=== PATIENT | female | born 1935 | race Caucasian/White ===

== ENCOUNTER 2016-09-18 13:35 | Inpatient (IN) ==
--- NOTE | 2016-09-18 15:07 | Emergency Department Note ---
Disposition Clinical Impression: Flu UTI (urinary tract infection) Qualifiers: Urinary tract infection type: acute cystitis Hematuria presence: with hematuria Qualified Code(s): N30.01 - Acute cystitis with hematuria Altered mental status Qualifiers: Altered mental status type: delirium Qualified Code(s): R41.0 - Disorientation , unspecified Disposition: Admitted As Inpatient Condition: Good Time of Disposition: 17:49 General Adult HPI - General Chief complaint: ED Nausea/Vomiting/Diarrhea Stated complaint: Flu A (+), UTI Time Seen by Provider: 09/18/16 15:03 Source: patient Limitations: no limitations Nursing Notes Reviewed: Yes Vital Signs Reviewed: Yes - History of Present Illness HPI Narrative: 1 week history of nausea and vomiting. Was diagnosed with flu on Saturday. As well as a UTI. Unable to keep food down. Daughter reporting confusion at home. Unable to perform ADLs as normal. Pain Scale: 0 - Related Data Home Medications Medication Instructions Recorded Confirmed Metoprolol [Lopressor] 12.5 mg PO BID 08/30/16 09/15/16 Allergies Allergy/AdvReac Type Severity Reaction Status Date / Time Penicillins [PCN] Allergy Rash Verified 08/30/16 14:12 Sulfa (Sulfonamide Allergy Vomiting Verified 08/30/16 14:12 Antibiotics) Past Medical History - Past Medical History Medical history: Reports: cancer, hyperlipidemia, hypertension Psychiatric history: Reports: no psych history [employer] B[employer]ER history: Reports: no [employer] history - Social History Smoking Status: Never smoker Smokeless Tobacco Status: No Alcohol use: Reports: none Drug use: Reports: none Physical Exam - General Limitations: no limitations General appearance: alert Course Course Narrative: Frail elderly Female patient presented to emergency department sent by primary care for admission to the hospital according to daughter. Patient states that she was seen on Saturday at [facility] and diagnosed with the flu as well as a UTI. They have been unable to fill her medications over the weekend due to the pharmacy being closed, so she has not taken any antibiotics or Tamiflu. Patient's daughter states that while the patient is acting appropriately as this time she states that she has been very confused at home. They report a fever of 101 and greater. She states she is unable to eat and has not been able to eat since Saturday. She reports nausea vomiting and diarrhea. States that she has tried to keep boulion cubes down with no luck. We will rehydrate patient while she is here. We will get basic labs and a UA. Medically control her nausea. She does have a recent abdominal CT scan done on the showed stable liver and renal cysts and no acute process in her abdomen. We will likely admit patient for symptomatic control. - Reevaluation(s) Reevaluation #1: Patient's urine is growing Escherichia coli. This was cultured on the . We will begin patient on antibiotic/is here. We will admit patient to the hospital for decompensation UTI and flu. Time: 17:20 Vital Signs Temperature 99.9 F H 09/18/16 14:11 Pulse Rate 87 09/18/16 14:11 Respiratory Rate 16 09/18/16 14:11 Blood Pressure 111/73 09/18/16 14:11 O2 Sat by Pulse Oximetry 94 L 09/18/16 14:11 Temperature 99.9 F H 09/18/16 14:11 Pulse Rate 112 09/18/16 17:47 Respiratory Rate 16 09/18/16 17:47 Blood Pressure 110/81 09/18/16 17:47 O2 Sat by Pulse Oximetry 99 09/18/16 17:47 Oxygen Delivery Oxygen Delivery Room Air Medical Decision Making - Medical Records Medical records reviewed: Yes I reviewed the patient's medical records. - Lab Data Lab results reviewed: Yes I reviewed the patient's lab results. Result diagrams: 09/18/16 15:20 09/18/16 15:20 Lab Results 09/18/16 09/18/16 09/18/16 Range/Units 15:20 15:20 15:20 WBC 11.9 H D (4.3-11.1) K/mcL RBC 4.31 (3.82-4.97) M/mcL Hgb 11.6 D (11.5-15.4) g/dL Hct 35.5 (35.3-44.9) % MCV 82.4 L (83.0-100.0) fL MCH 26.9 L (28.0-33.3) pg MCHC 32.7 (31.6-35.5) g/dL RDW 14.6 H (11.5-14.5) % Plt Count 157 (140-400) K/mcL MPV 10.5 (9.4-12.4) fL Immature Gran % 0.5 (0-4) % Seg Neutrophils % 88.0 % Lymphocytes % 7.7 % Monocytes % 3.6 % Eosinophils % 0.0 % Basophils % 0.2 % Neutrophils # 10.5 H (1.6-8.9) K/mcL Lymphocytes # 0.9 (0.6-4.6) K/mcL Monocytes # 0.4 (0.0-1.3) K/mcL Eosinophils # 0.0 (0.0-0.6) K/mcL Basophils # 0.0 (0.0-0.2) K/mcL Sodium 131 L (136-145) mEq/L Potassium 3.3 L (3.5-4.5) mEq/L Chloride 94 L (98-109) mEq/L Carbon Dioxide 27 (19-29) mEq/L BUN 8 (7-20) mg/dL Creatinine 0.63 (0.57-1.11) mg/dL Est GFR ( Amer) > 60 (> 60) Est GFR (Non-Af Amer) > 60 (> 60) BUN/Creatinine Ratio 13 (6-26) Glucose 129 H (70-99) mg/dL Calculated Osmolality 272 L (280-300) Lactic Acid 1.7 (0.5-2.2) mmol/L Calcium 8.7 (8.6-10.8) mg/dL Total Bilirubin 1.3 H (0.2-1.2) mg/dL Direct Bilirubin 0.7 H (0.0-0.5) mg/dL Indirect Bilirubin 0.6 (0.0-1.2) mg/dL AST 46 H (5-34) Units/L ALT 25 (0-55) Units/L Alkaline Phosphatase 67 (38-126) Units/L Serum Total Protein 6.2 (6.0-8.3) g/dL Albumin 3.1 L (3.5-5.0) g/dL Globulin 3.1 (2.4-3.5) g/dL Albumin/Globulin Ratio 1.0 L (1.1-2.2) Amylase 17 L (25-125) Units/L Lipase 6 L (8-78) Units/L Urine Color (Yellow) Urine Clarity (Clear) Urine pH (5.0-8.0) pH Units Ur Specific [place] (1.010-1.025) Urine Protein (Neg-Trace) mg/dL Urine Glucose (UA) (Normal) mg/dL Urine Ketones (Negative) mg/dL Urine Blood (Negative) Urine Nitrite (Negative) Urine Bilirubin (Negative) Urine Urobilinogen (Normal) mg/dL Ur Leukocyte Esterase (Negative) Urine Microscopic RBC (0-3) per hpf Urine Microscopic WBC (0-3) per hpf Ur Squamous Epith Cells (None-Few) per lpf Urine Bacteria (None-Few) per hpf Hyaline Casts (None-Few) per lpf 09/18/16 Range/Units 16:50 WBC (4.3-11.1) K/mcL RBC (3.82-4.97) M/mcL Hgb (11.5-15.4) g/dL Hct (35.3-44.9) % MCV (83.0-100.0) fL MCH (28.0-33.3) pg MCHC (31.6-35.5) g/dL RDW (11.5-14.5) % Plt Count (140-400) K/mcL MPV (9.4-12.4) fL Immature Gran % (0-4) % Seg Neutrophils % % Lymphocytes % % Monocytes % % Eosinophils % % Basophils % % Neutrophils # (1.6-8.9) K/mcL Lymphocytes # (0.6-4.6) K/mcL Monocytes # (0.0-1.3) K/mcL Eosinophils # (0.0-0.6) K/mcL Basophils # (0.0-0.2) K/mcL Sodium (136-145) mEq/L Potassium (3.5-4.5) mEq/L Chloride (98-109) mEq/L Carbon Dioxide (19-29) mEq/L BUN (7-20) mg/dL Creatinine (0.57-1.11) mg/dL Est GFR ( Amer) (> 60) Est GFR (Non-Af Amer) (> 60) BUN/Creatinine Ratio (6-26) Glucose (70-99) mg/dL Calculated Osmolality (280-300) Lactic Acid (0.5-2.2) mmol/L Calcium (8.6-10.8) mg/dL Total Bilirubin (0.2-1.2) mg/dL Direct Bilirubin (0.0-0.5) mg/dL Indirect Bilirubin (0.0-1.2) mg/dL AST (5-34) Units/L ALT (0-55) Units/L Alkaline Phosphatase (38-126) Units/L Serum Total Protein (6.0-8.3) g/dL Albumin (3.5-5.0) g/dL Globulin (2.4-3.5) g/dL Albumin/Globulin Ratio (1.1-2.2) Amylase (25-125) Units/L Lipase (8-78) Units/L Urine Color Yellow (Yellow) Urine Clarity Clear (Clear) Urine pH 7.0 (5.0-8.0) pH Units Ur Specific [place] 1.007 L (1.010-1.025) Urine Protein 30 H (Neg-Trace) mg/dL Urine Glucose (UA) Normal (Normal) mg/dL Urine Ketones 15 H (Negative) mg/dL Urine Blood Small H (Negative) Urine Nitrite Negative (Negative) Urine Bilirubin Negative (Negative) Urine Urobilinogen Normal (Normal) mg/dL Ur Leukocyte Esterase Negative (Negative) Urine Microscopic RBC 0-3 (0-3) per hpf Urine Microscopic WBC 0-3 (0-3) per hpf Ur Squamous Epith Cells Few (None-Few) per lpf Urine Bacteria None Seen (None-Few) per hpf Hyaline Casts None Seen (None-Few) per lpf - Radiology Data Radiology results reviewed: Yes I reviewed the patient's radiology results. Patient recently had a abdominal CT scan which showed no acute process. - EKG Data EKG #1 EKG attestation: Yes I reviewed and interpreted this EKG. EKG results narrative: Normal sinus rhythm at a rate of 60. RI interval is 153. QRS duration is 89. QT is 428. QTC is 429. No signs of acute ischemia. There is some interval change from previous EKG that was dated in 06/19/2012. Attestation Statement - Attestation Attestation: I examined this patient and my medical decision-making was reviewed with the OCEANOGRAPHER ASSISTANT/PA/Advanced Practice Nurse/Resident Physician. I agree with the documented findings, disposition and treatment plan as described except to the extent set forth below. [id number] time provided Patient complains of nausea, vomiting, diarrhea and urinary symptoms. She was recently diagnosed with a UTI and influenza. She appears elderly, thin, frail on exam. Patient seen and evaluated in conjunction with the resident physician
[2016-09-18 15:27] LABS: Basophils % 0.2 %; Hematocrit 35.5 % (35.3-44.9); Hemoglobin 11.6 g/dL (11.5-15.4); Immature Granulocytes % 0.5 % (0-4); Lymphocytes # 0.9 K/mcL (0.6-4.6); Lymphocytes % 7.7 %; Mean Corpuscular HGB Conc 32.7 g/dL (31.6-35.5); Mean Corpuscular Hemoglobin 26.9 pg (28.0-33.3); Mean Corpuscular Volume 82.4 fL (83.0-100.0); Mean Platelet Volume 10.5 fL (9.4-12.4); Monocytes # 0.4 K/mcL (0.0-1.3); Monocytes % 3.6 %; Neutrophils # 10.5 K/mcL (1.6-8.9); Platelet Count 157 K/mcL (140-400); Red Blood Count 4.31 M/mcL (3.82-4.97); Red Cell Distribution Width 14.6 % (11.5-14.5)
[2016-09-18] MEDS ORDERED: 0.9 % Sodium Chloride 1,000 ML IVC ONE (15:35)
[2016-09-18] MEDS ORDERED: Ondansetron 4 MG/2 ML VIAL IVP ONE (15:36)
[2016-09-18 15:43] LABS: Alanine Aminotransferase 25 Units/L (0-55); Albumin 3.1 g/dL (3.5-5.0); Alkaline Phosphatase 67 Units/L (38-126); Amylase 17 Units/L (25-125); Aspartate Amino Transferase 46 Units/L (5-34); BUN/Creatinine Ratio 13 (6-26); Bilirubin,Direct 0.7 mg/dL (0.0-0.5); Bilirubin,Indirect 0.6 mg/dL (0.0-1.2); Bilirubin,Total 1.3 mg/dL (0.2-1.2); Blood Urea Nitrogen 8 mg/dL (7-20); Calcium 8.7 mg/dL (8.6-10.8); Carbon Dioxide 27 mEq/L (19-29); Chloride 94 mEq/L (98-109); Globulin 3.1 g/dL (2.4-3.5); Glucose 129 mg/dL (70-99); Lipase 6 Units/L (8-78); Osmolality,Calculated 272 (280-300); Potassium 3.3 mEq/L (3.5-4.5); Sodium 131 mEq/L (136-145); Total Protein 6.2 g/dL (6.0-8.3); eGFR For African Americans > 60 (> 60); eGFR For Non-African Americans > 60 (> 60)
[2016-09-18 17:04] LABS: Bilirubin,Urine Negative (Negative); Blood,Urine Small (Negative); Clarity,Urine Clear (Clear); Color,Urine Yellow (Yellow); Glucose,Urine (UA) Normal (Normal); Ketones,Urine 15 mg/dL (Negative); Leukocyte Esterase,Urine Negative (Negative); Nitrite,Urine Negative (Negative); Protein,Urine 30 mg/dL (Neg-Trace); Specific Gravity,Urine 1.007 (1.010-1.025); Urobilinogen,Urine Normal (Normal)
[2016-09-18 17:07] LABS: Bacteria,Urine None Seen per hpf (None-Few); Hyaline Casts,Urine None Seen per lpf (None-Few); RBC,Urine 0-3 per hpf (0-3); Squamous Epithelial Cell,Urine Few per lpf (None-Few); WBC,Urine 0-3 per hpf (0-3)
--- NOTE | 2016-09-18 17:32 | Emergency Department Note ---
Disposition Referrals: Ishan Mclaughlin MD [Primary Care Provider] - Forms: ED Satisfaction Letter General Adult HPI - General Chief complaint: ED Nausea/Vomiting/Diarrhea Stated complaint: Flu A (+), UTI Time Seen by Provider: 09/18/16 15:03 Source: patient Limitations: no limitations Nursing Notes Reviewed: Yes Vital Signs Reviewed: Yes - History of Present Illness Pain Scale: 0 - Related Data Home Medications Medication Instructions Recorded Confirmed Metoprolol [Lopressor] 12.5 mg PO BID 08/30/16 09/15/16 Allergies Allergy/AdvReac Type Severity Reaction Status Date / Time Penicillins [PCN] Allergy Rash Verified 08/30/16 14:12 Sulfa (Sulfonamide Allergy Vomiting Verified 08/30/16 14:12 Antibiotics) Past Medical History - Past Medical History Medical history: Reports: cancer, hyperlipidemia, hypertension Psychiatric history: Reports: no psych history REHAB DEPARTMENT MANAGER history: Reports: no REHAB DEPARTMENT MANAGER history - Social History Smoking Status: Never smoker Smokeless Tobacco Status: No Alcohol use: Reports: none Drug use: Reports: none Physical Exam - General Limitations: no limitations General appearance: alert Course Course Narrative: Female patient presenting to the emergency department with her daughter. Daughter states that patient was diagnosed with the flu and a UTI on Saturday. Patient states she has not been feeling very good since Saturday of last week. This is one week ago now. She states on Saturday she was given a prescription for Tamiflu as well as an antibiotic for her UTI. She was unable to fill these. Daughter states that the patient was not acting herself at home. She was confused and unable to perform her activities of daily living. Patient states that she Vital Signs Temperature 99.9 F H 09/18/16 14:11 Pulse Rate 87 09/18/16 14:11 Respiratory Rate 16 09/18/16 14:11 Blood Pressure 111/73 09/18/16 14:11 O2 Sat by Pulse Oximetry 94 L 09/18/16 14:11 Temperature 99.9 F H 09/18/16 14:11 Pulse Rate 87 09/18/16 14:11 Respiratory Rate 16 09/18/16 14:11 Blood Pressure 111/73 09/18/16 14:11 O2 Sat by Pulse Oximetry 94 L 09/18/16 14:11 Oxygen Delivery Oxygen Delivery Room Air Medical Decision Making - Lab Data Result diagrams: 09/18/16 15:20 09/18/16 15:20 Lab Results 09/18/16 09/18/16 09/18/16 Range/Units 15:20 15:20 15:20 WBC 11.9 H D (4.3-11.1) K/mcL RBC 4.31 (3.82-4.97) M/mcL Hgb 11.6 D (11.5-15.4) g/dL Hct 35.5 (35.3-44.9) % MCV 82.4 L (83.0-100.0) fL MCH 26.9 L (28.0-33.3) pg MCHC 32.7 (31.6-35.5) g/dL RDW 14.6 H (11.5-14.5) % Plt Count 157 (140-400) K/mcL MPV 10.5 (9.4-12.4) fL Immature Gran % 0.5 (0-4) % Seg Neutrophils % 88.0 % Lymphocytes % 7.7 % Monocytes % 3.6 % Eosinophils % 0.0 % Basophils % 0.2 % Neutrophils # 10.5 H (1.6-8.9) K/mcL Lymphocytes # 0.9 (0.6-4.6) K/mcL Monocytes # 0.4 (0.0-1.3) K/mcL Eosinophils # 0.0 (0.0-0.6) K/mcL Basophils # 0.0 (0.0-0.2) K/mcL Sodium 131 L (136-145) mEq/L Potassium 3.3 L (3.5-4.5) mEq/L Chloride 94 L (98-109) mEq/L Carbon Dioxide 27 (19-29) mEq/L BUN 8 (7-20) mg/dL Creatinine 0.63 (0.57-1.11) mg/dL Est GFR ( Amer) > 60 (> 60) Est GFR (Non-Af Amer) > 60 (> 60) BUN/Creatinine Ratio 13 (6-26) Glucose 129 H (70-99) mg/dL Calculated Osmolality 272 L (280-300) Lactic Acid 1.7 (0.5-2.2) mmol/L Calcium 8.7 (8.6-10.8) mg/dL Total Bilirubin 1.3 H (0.2-1.2) mg/dL Direct Bilirubin 0.7 H (0.0-0.5) mg/dL Indirect Bilirubin 0.6 (0.0-1.2) mg/dL AST 46 H (5-34) Units/L ALT 25 (0-55) Units/L Alkaline Phosphatase 67 (38-126) Units/L Serum Total Protein 6.2 (6.0-8.3) g/dL Albumin 3.1 L (3.5-5.0) g/dL Globulin 3.1 (2.4-3.5) g/dL Albumin/Globulin Ratio 1.0 L (1.1-2.2) Amylase 17 L (25-125) Units/L Lipase 6 L (8-78) Units/L Urine Color (Yellow) Urine Clarity (Clear) Urine pH (5.0-8.0) pH Units Ur Specific [place] (1.010-1.025) Urine Protein (Neg-Trace) mg/dL Urine Glucose (UA) (Normal) mg/dL Urine Ketones (Negative) mg/dL Urine Blood (Negative) Urine Nitrite (Negative) Urine Bilirubin (Negative) Urine Urobilinogen (Normal) mg/dL Ur Leukocyte Esterase (Negative) Urine Microscopic RBC (0-3) per hpf Urine Microscopic WBC (0-3) per hpf Ur Squamous Epith Cells (None-Few) per lpf Urine Bacteria (None-Few) per hpf Hyaline Casts (None-Few) per lpf 09/18/16 Range/Units 16:50 WBC (4.3-11.1) K/mcL RBC (3.82-4.97) M/mcL Hgb (11.5-15.4) g/dL Hct (35.3-44.9) % MCV (83.0-100.0) fL MCH (28.0-33.3) pg MCHC (31.6-35.5) g/dL RDW (11.5-14.5) % Plt Count (140-400) K/mcL MPV (9.4-12.4) fL Immature Gran % (0-4) % Seg Neutrophils % % Lymphocytes % % Monocytes % % Eosinophils % % Basophils % % Neutrophils # (1.6-8.9) K/mcL Lymphocytes # (0.6-4.6) K/mcL Monocytes # (0.0-1.3) K/mcL Eosinophils # (0.0-0.6) K/mcL Basophils # (0.0-0.2) K/mcL Sodium (136-145) mEq/L Potassium (3.5-4.5) mEq/L Chloride (98-109) mEq/L Carbon Dioxide (19-29) mEq/L BUN (7-20) mg/dL Creatinine (0.57-1.11) mg/dL Est GFR ( Amer) (> 60) Est GFR (Non-Af Amer) (> 60) BUN/Creatinine Ratio (6-26) Glucose (70-99) mg/dL Calculated Osmolality (280-300) Lactic Acid (0.5-2.2) mmol/L Calcium (8.6-10.8) mg/dL Total Bilirubin (0.2-1.2) mg/dL Direct Bilirubin (0.0-0.5) mg/dL Indirect Bilirubin (0.0-1.2) mg/dL AST (5-34) Units/L ALT (0-55) Units/L Alkaline Phosphatase (38-126) Units/L Serum Total Protein (6.0-8.3) g/dL Albumin (3.5-5.0) g/dL Globulin (2.4-3.5) g/dL Albumin/Globulin Ratio (1.1-2.2) Amylase (25-125) Units/L Lipase (8-78) Units/L Urine Color Yellow (Yellow) Urine Clarity Clear (Clear) Urine pH 7.0 (5.0-8.0) pH Units Ur Specific [place] 1.007 L (1.010-1.025) Urine Protein 30 H (Neg-Trace) mg/dL Urine Glucose (UA) Normal (Normal) mg/dL Urine Ketones 15 H (Negative) mg/dL Urine Blood Small H (Negative) Urine Nitrite Negative (Negative) Urine Bilirubin Negative (Negative) Urine Urobilinogen Normal (Normal) mg/dL Ur Leukocyte Esterase Negative (Negative) Urine Microscopic RBC 0-3 (0-3) per hpf Urine Microscopic WBC 0-3 (0-3) per hpf Ur Squamous Epith Cells Few (None-Few) per lpf Urine Bacteria None Seen (None-Few) per hpf Hyaline Casts None Seen (None-Few) per lpf
[2016-09-18] MEDS ORDERED: MOM Conc 10 ML UD.LIQ PO PRN (21:05)
[2016-09-18] MEDS ORDERED: Naloxone 0.4 MG/ML INJ IVP PRN (21:05)
[2016-09-18] MEDS ORDERED: Mag Hydrox/Al Hydrox/Simeth 30 ML UDC PO PRN (21:05)
[2016-09-18] MEDS ORDERED: Ondansetron 4 MG/2 ML VIAL IVP PRN (21:05)
[2016-09-18] MEDS ORDERED: Acetaminophen 325 MG TABLET PO PRN (21:05)
--- NOTE | 2016-09-18 21:13 | Internal Med History&Physical ---
<Orly Louise - Last Filed: 09/18/16 21:42> Date of Encounter: 09/18/16 Time of Encounter: 20:40 Assessment and Plan (1) UTI (urinary tract infection) Current visit: Yes Status: Acute Pt was seen at [facility] on 09/15, diagnosed with UTI and given abx rx that she did not get filled until yesterday. She took one pill and said that they made her sick and did not take anymore. Culture growing gram negative rods, most likely E. coli. Pt got initial dose Rocephin 1 gram IV in ED. Will continue and add Zithromax 500mg IV daily. Qualifiers: Urinary tract infection type: acute cystitis Hematuria presence: without hematuria Qualified Code(s): N30.00 - Acute cystitis without hematuria (2) Influenza A Current visit: No Status: Acute Pt Flu A positive, negative for B at [facility] on 09/15. Pt did not get rx for Tamiflu filled until yesterday and only took one tablet. Pt was sent to ED today for admission for continued illness. Pt states that she actually feels better. Denies worsening cough, productive cough, dyspnea, or other URI symptoms today. Window for starting Tamiflu is over now, will not continue. Since pt had low grade fever on arrival and white count is 11.9, will order chest xray and duonebs prn. (3) Altered mental status Current visit: Yes Status: Acute Family reports recent confusion at home. Pt denies and is alert, oriented x 3, and answers questions appropriately. Pt is close to nurse's station. Will implement fall precautions. Qualifiers: Altered mental status type: unspecified Qualified Code(s): R41.82 - Altered mental status, unspecified (4) Hypokalemia Current visit: Yes Status: Acute K 3.3. Potassium Chloride 40meq po once. Magnesium level in a.m. (5) Hyponatremia Current visit: Yes Status: Acute Sodium 133. 0.9NS at 75ml/hour (6) Iron deficiency anemia Current visit: No Status: Chronic Stable. Will continue to monitor. Qualifiers: Iron deficiency anemia type: inadequate dietary iron intake Qualified Code( s): D50.8 - Other iron deficiency anemias (7) HTN (hypertension) Current visit: Yes Status: Chronic STable. Continue pts home dose of Metoprolol. Monitor VS. Qualifiers: Hypertension type: essential hypertension Qualified Code(s): I10 - Essential (primary) hypertension Internal Medicine - H&P: HPI Chief complaint: flu, uti Admitted From: Home Plans for Post Hospital Care: Home History of present illness: Ms. Zaragoza is a 81 year old female with history of recent UTI and HTN who presents to ED today for 1 week history of n/v, altered mental status, and diagnosis of UTI and flu A on 09/15 at [facility]. Pt got rx for Tamiflu and ATB at that time, but did not get them filled until yesterday. She took one pill and said that they made her sick and she refused to take any more. Pt reports that she has had fevers over the week, but is feeling better. She is alert and oriented x 3 and answers questions appropriately, however, daughter says that pt has been confused and is unable to expound on any information. Pt was sent here by PCP today for admission. Past Med Surg Social Fam HX - Past Medical History Medical history: cancer, hyperlipidemia, hypertension Psychiatric history: no psych history - Social History Smoking Status: Never smoker Smokeless Tobacco Status: No Alcohol use: none Drug use: none - Family History Mother Hx Family Cancer: Yes Father Hx Family Cardiac Disorders: Yes Internal Medicine - H&P: Meds Metoprolol [Lopressor] 12.5 mg PO BID 08/30/16 [History] Allergies Penicillins [PCN] Allergy (Verified 08/30/16 14:12) Rash Sulfa (Sulfonamide Antibiotics) Allergy (Verified 08/30/16 14:12) Vomiting All Systems PM: A 10-system review of systems was performed and is negative for pertinent findings except as documented above in the HPI. - Constitutional Constitutional: fatigue, fever(s), malaise, weakness, no falls - EENT Eyes: no discharge, no loss of vision Ears: no ear discharge, no ear pain Nose, mouth and throat: no dysphagia, no facial pain, no hoarseness, no neck pain, no post-nasal drip, no sinus pain, no sinus pressure, no sore throat - Cardiovascular Cardiovascular ROS IM: no chest pain, no dyspnea, no edema, no lightheadedness - Respiratory Respiratory: cough, chest congestion, no pain on inspiration, no pain with cough - Gastrointestinal Gastrointestinal: diarrhea, nausea, vomiting, no constipation - Genitourinary Genitourinary: dysuria, no urinary frequency, no urinary hesitancy, no urinary incontinence Additional comments: PT has chronic back pain, denies change. - Musculoskeletal Musculoskeletal ROS IM: back pain, no numbness, no tingling - Neurological Neurological ROS: no confusion Additional comments: Daughter reports confusion, however, is unable to give examples. - Constitutional Vitals: Temp Pulse Resp BP Pulse Ox 98.1 F 98 14 95/64 95 09/18/16 19:31 09/18/16 19:31 09/18/16 19:31 09/18/16 19:31 09/18/16 19:31 General appearance: Present: cooperative, A&O X 3, no acute distress, underweight, answers questions appropriately - Head Head exam: Present: atraumatic, normal inspection - Eye Eye exam: Present: normal appearance, conjuntiva pink. Absent: nystagmus - ENT ENT exam: Present: mucous membranes dry, normal exam, normal external ear exam, normal oropharynx - Neck Neck exam general surgery: Present: normal inspection. Absent: lymphadenopathy , tenderness - Respiratory Respiratory exam: Present: CTAB. Absent: chest wall tenderness, decreased breath sounds, rales, rhonchi, wheezes - Cardiovascular Cardiovascular exam: Present: RRR, +S1, +S2. Absent: diastolic murmur, systolic murmur - GI/Abdominal GI/Abdominal exam: Present: normal bowel sounds, soft. Absent: hepatomegaly, tenderness - Extremities Exam Extremities exam: Present: calf tenderness, normal capillary refill, normal inspection, warm, radial pulses palpable and symetrical. Absent: cyanotic, joint swelling, mottling, pedal edema, tenderness Internal Med - H&P Results - Labs CBC & Chem 7: 09/18/16 15:20 09/18/16 15:20 <JanAngel Madison - Last Filed: 09/19/16 07:22> Date of Encounter: 09/18/16 Internal Medicine - H&P: HPI History of present illness: Ms. Zaragoza is a 81 year old female For this encounter, I have reviewed the [employer] documentation, treatment plan, and medical decision making. I examined this patient and my medical decision-making was reviewed with the Advanced Practice Nurse. I agree with the documented findings, disposition and treatment plan as described except to the extent set forth below. All Systems PM: A 10-system review of systems was performed and is negative for pertinent findings except as documented above in the HPI. - Constitutional Vitals: Temp Pulse Resp BP Pulse Ox 98.0 F 69 12 108/69 97 09/19/16 06:56 09/19/16 06:56 09/19/16 06:56 09/19/16 06:56 09/19/16 06:56 Internal Med - H&P Results - Labs CBC & Chem 7: 09/19/16 04:08 09/19/16 04:08 Labs: Short CBC 09/19/16 Range/Units 04:08 WBC 9.7 (4.3-11.1) K/mcL Hgb 10.2 L (11.5-15.4) g/dL Hct 31.5 L (35.3-44.9) % Plt Count 137 L (140-400) K/mcL Neutrophils # 8.4 (1.6-8.9) K/mcL BMP 09/19/16 04:08 Sodium 137 Potassium 3.5 Chloride 104 Carbon Dioxide 24 BUN 7 Creatinine 0.55 L Glucose 103 H Calcium 7.7 L Vital Signs Temp Pulse Resp BP Pulse Ox 09/19/16 06:56 98.0 F 69 12 108/69 97 09/19/16 03:47 98.0 F 113 20 115/82 99 09/18/16 23:58 98.4 F 72 16 95/59 98 09/18/16 19:31 98.1 F 98 14 95/64 95 09/18/16 18:02 16 110/81 09/18/16 17:47 112 16 110/81 99 09/18/16 14:11 99.9 F H 87 16 111/73 94 L Intake and Output 09/18/16 09/18/16 09/19/16 15:59 23:59 07:59 Intake Total 1250 / 1250 Balance 1250 / 1250 Intake: IV Fluids 1250 / 1250 0.9 % Sodium Chloride 1, 1000 / 1000 000 ML @ 3750 mls/hr IVC .Q16M ONE Rx#:[id number] Zithromax 500 mg In 250 / 250 Dextrose 5% 250 ML @ 252 mls/hr IVPB Q24H [place] Rx#: [id number] Other: Stool Size Moderate Stool Consistency liquid Stool Characteristics Normal for Patient Stool Color Brown # Voids 1 1 # Bowel Movement Diapers 1 1 Weight 43.545 kg - Impressions Abnormal lab results RBC 3.80 M/mcL (3.82-4.97) L 09/19/16 04:08 Hgb 10.2 g/dL (11.5-15.4) L 09/19/16 04:08 Hct 31.5 % (35.3-44.9) L 09/19/16 04:08 MCV 82.9 fL (83.0-100.0) L 09/19/16 04:08 MCH 26.8 pg (28.0-33.3) L 09/19/16 04:08 RDW 14.8 % (11.5-14.5) H 09/19/16 04:08 Plt Count 137 K/mcL (140-400) L 09/19/16 04:08 Platelet Estimate Slight Decrease (Normal) L 09/19/16 04:08 Creatinine 0.55 mg/dL (0.57-1.11) L 09/19/16 04:08 Glucose 103 mg/dL (70-99) H 09/19/16 04:08 Calcium 7.7 mg/dL (8.6-10.8) L 09/19/16 04:08 Total Bilirubin 1.3 mg/dL (0.2-1.2) H 09/18/16 15:20 Direct Bilirubin 0.7 mg/dL (0.0-0.5) H 09/18/16 15:20 AST 46 Units/L (5-34) H 09/18/16 15:20 C-Reactive Protein 92 mg/L (Less than 5) H 09/19/16 04:08 Albumin 3.1 g/dL (3.5-5.0) L 09/18/16 15:20 Albumin/Globulin Ratio 1.0 (1.1-2.2) L 09/18/16 15:20 Amylase 17 Units/L (25-125) L 09/18/16 15:20 Lipase 6 Units/L (8-78) L 09/18/16 15:20 Ur Specific [place] 1.007 (1.010-1.025) L 09/18/16 16:50 Urine Protein 30 mg/dL (Neg-Trace) H 09/18/16 16:50 Urine Ketones 15 mg/dL (Negative) H 09/18/16 16:50 Urine Blood Small (Negative) H 09/18/16 16:50 Influenza A (H3) PCR DETECTED (Not Detect) A 09/19/16 04:56 Laboratory Results WBC 9.7 K/mcL (4.3-11.1) 09/19/16 04:08 RBC 3.80 M/mcL (3.82-4.97) L 09/19/16 04:08 Hgb 10.2 g/dL (11.5-15.4) L 09/19/16 04:08 Hct 31.5 % (35.3-44.9) L 09/19/16 04:08 MCV 82.9 fL (83.0-100.0) L 09/19/16 04:08 MCH 26.8 pg (28.0-33.3) L 09/19/16 04:08 MCHC 32.4 g/dL (31.6-35.5) 09/19/16 04:08 RDW 14.8 % (11.5-14.5) H 09/19/16 04:08 Plt Count 137 K/mcL (140-400) L 09/19/16 04:08 MPV 11.5 fL (9.4-12.4) 09/19/16 04:08 Immature Gran % 0.7 % (0-4) 09/19/16 04:08 Seg Neutrophils % 86.7 % 09/19/16 04:08 Lymphocytes % 8.1 % 09/19/16 04:08 Monocytes % 4.4 % 09/19/16 04:08 Eosinophils % 0.0 % 09/19/16 04:08 Basophils % 0.1 % 09/19/16 04:08 Neutrophils # 8.4 K/mcL (1.6-8.9) 09/19/16 04:08 Lymphocytes # 0.8 K/mcL (0.6-4.6) 09/19/16 04:08 Monocytes # 0.4 K/mcL (0.0-1.3) 09/19/16 04:08 Eosinophils # 0.0 K/mcL (0.0-0.6) 09/19/16 04:08 Basophils # 0.0 K/mcL (0.0-0.2) 09/19/16 04:08 Platelet Estimate Slight Decrease (Normal) L 09/19/16 04:08 Sodium 137 mEq/L (136-145) 09/19/16 04:08 Potassium 3.5 mEq/L (3.5-4.5) 09/19/16 04:08 Chloride 104 mEq/L (98-109) 09/19/16 04:08 Carbon Dioxide 24 mEq/L (19-29) 09/19/16 04:08 BUN 7 mg/dL (7-20) 09/19/16 04:08 Creatinine 0.55 mg/dL (0.57-1.11) L 09/19/16 04:08 Est GFR ( Amer) > 60 (> 60) 09/19/16 04:08 Est GFR (Non-Af Amer) > 60 (> 60) 09/19/16 04:08 BUN/Creatinine Ratio 13 (6-26) 09/19/16 04:08 Glucose 103 mg/dL (70-99) H 09/19/16 04:08 Calculated Osmolality 282 (280-300) 09/19/16 04:08 Lactic Acid 1.7 mmol/L (0.5-2.2) 09/18/16 15:20 Calcium 7.7 mg/dL (8.6-10.8) L 09/19/16 04:08 Magnesium 1.6 mg/dL (1.6-2.6) 09/19/16 04:08 Total Bilirubin 1.3 mg/dL (0.2-1.2) H 09/18/16 15:20 Direct Bilirubin 0.7 mg/dL (0.0-0.5) H 09/18/16 15:20 Indirect Bilirubin 0.6 mg/dL (0.0-1.2) 09/18/16 15:20 AST 46 Units/L (5-34) H 09/18/16 15:20 ALT 25 Units/L (0-55) 09/18/16 15:20 Alkaline Phosphatase 67 Units/L (38-126) 09/18/16 15:20 C-Reactive Protein 92 mg/L (Less than 5) H 09/19/16 04:08 Serum Total Protein 6.2 g/dL (6.0-8.3) 09/18/16 15:20 Albumin 3.1 g/dL (3.5-5.0) L 09/18/16 15:20 Globulin 3.1 g/dL (2.4-3.5) 09/18/16 15:20 Albumin/Globulin Ratio 1.0 (1.1-2.2) L 09/18/16 15:20 Amylase 17 Units/L (25-125) L 09/18/16 15:20 Lipase 6 Units/L (8-78) L 09/18/16 15:20 Urine Color Yellow (Yellow) 09/18/16 16:50 Urine Clarity Clear (Clear) 09/18/16 16:50 Urine pH 7.0 pH Units (5.0-8.0) 09/18/16 16:50 Ur Specific [place] 1.007 (1.010-1.025) L 09/18/16 16:50 Urine Protein 30 mg/dL (Neg-Trace) H 09/18/16 16:50 Urine Glucose (UA) Normal mg/dL (Normal) 09/18/16 16:50 Urine Ketones 15 mg/dL (Negative) H 09/18/16 16:50 Urine Blood Small (Negative) H 09/18/16 16:50 Urine Nitrite Negative (Negative) 09/18/16 16:50 Urine Bilirubin Negative (Negative) 09/18/16 16:50 Urine Urobilinogen Normal mg/dL (Normal) 09/18/16 16:50 Ur Leukocyte Esterase Negative (Negative) 09/18/16 16:50 Urine Microscopic RBC 0-3 per hpf (0-3) 09/18/16 16:50 Urine Microscopic WBC 0-3 per hpf (0-3) 09/18/16 16:50 Ur Squamous Epith Cells Few per lpf (None-Few) 09/18/16 16:50 Urine Bacteria None Seen per hpf (None-Few) 09/18/16 16:50 Hyaline Casts None Seen per lpf (None-Few) 09/18/16 16:50 Chlamy pneumoniae PCR Not Detected (Not Detect) 09/19/16 04:56 Adenovirus (PCR) Not Detected (Not Detect) 09/19/16 04:56 B. pertussis DNA (PCR) Not Detected (Not Detect) 09/19/16 04:56 Coronavirus OC43 (PCR) Not Detected (Not Detect) 09/19/16 04:56 Coronavirus HKU1 (PCR) Not Detected (Not Detect) 09/19/16 04:56 Coronavirus 229E (PCR) Not Detected (Not Detect) 09/19/16 04:56 Coronavirus NL63 (PCR) Not Detected (Not Detect) 09/19/16 04:56 Human Metapneumovirus Not Detected (Not Detect) 09/19/16 04:56 Influenza A (H1) PCR Not Detected (Not Detect) 09/19/16 04:56 Influ A (H1N1/09) PCR Not Detected (Not Detect) 09/19/16 04:56 Influenza A (H3) PCR DETECTED (Not Detect) A 09/19/16 04:56 Influenza A Untype (PCR) Not Detected (Not Detect) 09/19/16 04:56 Influenza Type B (PCR) Not Detected (Not Detect) 09/19/16 04:56 M.pneumoniae DNA (PCR) Not Detected (Not Detect) 09/19/16 04:56 Parainfluenza 1 (PCR) Not Detected (Not Detect) 09/19/16 04:56 Parainfluenza 2 (PCR) Not Detected (Not Detect) 09/19/16 04:56 Parainfluenza 3 (PCR) Not Detected (Not Detect) 09/19/16 04:56 Parainfluenza 4 (PCR) Not Detected (Not Detect) 09/19/16 04:56 RSV (PCR) Not Detected (Not Detect) 09/19/16 04:56 Entero/Rhino (PCR) Not Detected (Not Detect) 09/19/16 04:56
[2016-09-18] MEDS ORDERED: Ipratropium/Albuterol Neb 3 ML IH PRN (21:41)
[2016-09-18] MEDS ORDERED: 0.9 % Sodium Chloride 1,000 ML IVC SCH (21:45)
[2016-09-18] MEDS ORDERED: Potassium Chloride Elixir 20 MEQ/15 ML UDC PO ONE (21:46)
[2016-09-18] MEDS: Azithromycin 500 MG in D5% in Water 250 ML IVPB SCH (22:31)
[2016-09-19] MEDS ORDERED: Benzonatate 100 MG CAPSULE PO PRN (00:02)
[2016-09-19] MEDS ORDERED: *HR* OxyCODONE Immed Rel 5 MG TABLET PO PRN (00:03)
[2016-09-19] MEDS ORDERED: *HR* Morphine 2 MG/ML SYRINGE IVP PRN (00:03)
[2016-09-19 05:10] LABS: Basophils % 0.1 %; Hematocrit 31.5 % (35.3-44.9); Hemoglobin 10.2 g/dL (11.5-15.4); Immature Granulocytes % 0.7 % (0-4); Lymphocytes # 0.8 K/mcL (0.6-4.6); Lymphocytes % 8.1 %; Mean Corpuscular HGB Conc 32.4 g/dL (31.6-35.5); Mean Corpuscular Hemoglobin 26.8 pg (28.0-33.3); Mean Corpuscular Volume 82.9 fL (83.0-100.0); Mean Platelet Volume 11.5 fL (9.4-12.4); Monocytes # 0.4 K/mcL (0.0-1.3); Monocytes % 4.4 %; Neutrophils # 8.4 K/mcL (1.6-8.9); Platelet Count 137 K/mcL (140-400); Red Cell Distribution Width 14.8 % (11.5-14.5); Segmented Neutrophils % 86.7 %
[2016-09-19 05:32] LABS: BUN/Creatinine Ratio 13 (6-26); Blood Urea Nitrogen 7 mg/dL (7-20); Calcium 7.7 mg/dL (8.6-10.8); Carbon Dioxide 24 mEq/L (19-29); Chloride 104 mEq/L (98-109); Glucose 103 mg/dL (70-99); Osmolality,Calculated 282 (280-300); Potassium 3.5 mEq/L (3.5-4.5); Sodium 137 mEq/L (136-145); eGFR For African Americans > 60 (> 60); eGFR For Non-African Americans > 60 (> 60)
[2016-09-19 05:49] LABS: Platelet Estimate Slight Decrease (Normal)
[2016-09-19 06:42] LABS: Coronavirus 229E Not Detected (Not Detect); Coronavirus HKU1 Not Detected (Not Detect); Coronavirus NL63 Not Detected (Not Detect); Coronavirus OC43 Not Detected (Not Detect); Human Metapneumovirus Not Detected (Not Detect); Human Rhinovirus/Enterovirus Not Detected (Not Detect)
[2016-09-19 06:45] LABS: Bordetella Pertussis Not Detected (Not Detect); Chlamydophila pneumoniae Not Detected (Not Detect); Influenza A Subtype 2009 H1 Not Detected (Not Detect); Influenza A Untypeable Not Detected (Not Detect); Influenza B Not Detected (Not Detect); Mycoplasma pneumoniae Not Detected (Not Detect); Parainfluenza Virus 1 Not Detected (Not Detect); Parainfluenza Virus 2 Not Detected (Not Detect); Parainfluenza Virus 3 Not Detected (Not Detect); Parainfluenza Virus 4 Not Detected (Not Detect); Respiratory Syncytial Virus Not Detected (Not Detect)
[2016-09-19 06:51] LABS: Adenovirus Not Detected (Not Detect)
[2016-09-19] MEDS ORDERED: Famotidine 20 MG TABLET PO SCH (09:00)
[2016-09-19 11:52] LABS: Thyroid Stimulating Hormone 1.75 mcIU/mL (0.350-4.840)
--- NOTE | 2016-09-19 11:58 | Internal Med Progress Note ---
Date of Encounter: 09/19/16 Time of Encounter: 09:00 - Assessment and plan (1) Altered mental status Current Visit: Yes Status: Resolved Assessment and plan: Patient alert and oriented 3. Qualifiers: Altered mental status type: unspecified Qualified Code(s): R41.82 - Altered mental status, unspecified (2) Flu Current Visit: Yes Status: Acute Assessment and plan: Positive for influenza AH3. She is endorsing several sick contacts close to her. She has not been able to eat very much over the past week but was able to have a couple bites of her breakfast, which is improvement. We will continue to advance her diet as she tolerates. She denies shortness of breath. Plan is to observe her at least 1 more night, possibly to given that she has very little by mouth intake, continues with diarrhea, and is generally weak. (3) Hypokalemia Current Visit: Yes Status: Resolved (4) Hyponatremia Current Visit: Yes Status: Resolved (5) UTI (urinary tract infection) Current Visit: Yes Status: Acute Assessment and plan: Preliminary gram-negative rods, continue azithromycin and ceftriaxone, sensitivities pending. Mild leukocytosis resolved. Vital signs are stable Qualifiers: Urinary tract infection type: acute cystitis Hematuria presence: without hematuria Qualified Code(s): N30.00 - Acute cystitis without hematuria (6) HTN (hypertension) Current Visit: Yes Status: Chronic Assessment and plan: Appears controlled, we will continue to trend and adjust medications as indicated Qualifiers: Hypertension type: essential hypertension Qualified Code(s): I10 - Essential (primary) hypertension (7) Anemia Current Visit: No Status: Chronic Assessment and plan: Mild, acute on chronic, no signs of active bleeding, stable (8) Influenza A Current Visit: No Status: Acute - Subjective Interval history: Patient seen and examined. On examination, patient sitting upright in bed watching television. She is alert and oriented 3 and currently denies pain. She states she was able to eat a little bit of her breakfast but only a few bites. - Constitutional Vitals: Temp Pulse Resp BP Pulse Ox 97.9 F 83 10 112/71 98 09/19/16 10:49 09/19/16 10:49 09/19/16 10:49 09/19/16 10:49 09/19/16 10:49 General appearance: Present: cooperative, A&O X 3, pleasant, no acute distress, underweight, answers questions appropriately - Head Head exam: Present: atraumatic, normocephalic - Eye Eye exam: Present: PERRL, conjuntiva pink, sclera anicteric Pupils: Present: PERRL - Neck Neck exam general surgery: Present: supple, trachea midline. Absent: lymphadenopathy - Respiratory Respiratory exam: Present: rhonchi (upper airway congestion with good aeration) . Absent: accessory muscle use, rales, respiratory distress, wheezes - Cardiovascular Cardiovascular exam: Present: RRR, +S1, +S2. Absent: diastolic murmur, gallop, rubs, systolic murmur - GI/Abdominal GI/Abdominal exam: Present: normal bowel sounds, soft, no peritoneal signs. Absent: distended, tenderness - Extremities Exam Extremities exam: Present: warm, radial pulses palpable and symetrical. Absent : calf tenderness, cyanotic, pedal edema - Neurological Exam Neurological exam: Present: alert, CN II-XII intact, oriented X3, no focal deficits, strengths equal and symetr throughout. Absent: pronater drift, facial droop, speech deficit - Skin Skin exam: Present: dry, intact, pallor, warm Internal Medicine: Result - Labs CBC & Chem 7: 09/19/16 04:08 09/19/16 04:08 Labs: Short CBC 09/19/16 Range/Units 04:08 WBC 9.7 (4.3-11.1) K/mcL Hgb 10.2 L (11.5-15.4) g/dL Hct 31.5 L (35.3-44.9) % Plt Count 137 L (140-400) K/mcL Neutrophils # 8.4 (1.6-8.9) K/mcL BMP 09/19/16 04:08 Sodium 137 Potassium 3.5 Chloride 104 Carbon Dioxide 24 BUN 7 Creatinine 0.55 L Glucose 103 H Calcium 7.7 L Consult Discharge Plan - Plan Referrals: Ishan Mclaughlin MD [Primary Care Provider] -
[2016-09-19] MEDS: Famotidine 20 MG TABLET PO SCH (20:49)
[2016-09-19] MEDS: Azithromycin 500 MG in D5% in Water 250 ML IVPB SCH (21:59)
[2016-09-20 04:52] LABS: Basophils % 0.1 %; Eosinophils % 0.2 %; Hemoglobin 10.2 g/dL (11.5-15.4); Immature Granulocytes % 0.6 % (0-4); Lymphocytes # 0.9 K/mcL (0.6-4.6); Lymphocytes % 10.6 %; Mean Corpuscular HGB Conc 31.9 g/dL (31.6-35.5); Mean Corpuscular Hemoglobin 26.6 pg (28.0-33.3); Mean Corpuscular Volume 83.3 fL (83.0-100.0); Mean Platelet Volume 10.8 fL (9.4-12.4); Monocytes # 0.4 K/mcL (0.0-1.3); Monocytes % 4.9 %; Platelet Count 155 K/mcL (140-400); Red Blood Count 3.84 M/mcL (3.82-4.97); Segmented Neutrophils % 83.6 %
[2016-09-20 04:57] LABS: Neutrophils # 7.2 K/mcL (1.6-8.9)
[2016-09-20 05:07] LABS: BUN/Creatinine Ratio 13 (6-26); Blood Urea Nitrogen 7 mg/dL (7-20); Calcium 8.1 mg/dL (8.6-10.8); Carbon Dioxide 23 mEq/L (19-29); Chloride 105 mEq/L (98-109); Glucose 110 mg/dL (70-99); Magnesium 1.6 mg/dL (1.6-2.6); Osmolality,Calculated 281 (280-300); Potassium 3.3 mEq/L (3.5-4.5); Sodium 136 mEq/L (136-145); eGFR For African Americans > 60 (> 60); eGFR For Non-African Americans > 60 (> 60)
[2016-09-20 05:34] LABS: Platelet Estimate Normal (Normal); Reactive Lymphocytes Present (Not Present)
--- NOTE | 2016-09-20 16:22 | Internal Med Progress Note ---
Date of Encounter: 09/20/16 Time of Encounter: 16:18 - Assessment and plan (1) Atrial fibrillation Current Visit: Yes Status: Acute Assessment and plan: Noted to have Afib with RVR this morning with rate fluctuating between 120-150 Rate controlled with one time dose of Cardizem 10mg IVP Will increase Metoprolol to 25mg PO q12h Will start Aspirin 81mg PO qd If arrhythmia persists, will consider cardiology eval in am for further management Qualifiers: Atrial fibrillation type: paroxysmal Qualified Code(s): I48.0 - Paroxysmal atrial fibrillation (2) Urinary tract infection Current Visit: No Status: Acute Assessment and plan: Continue IV abx awaiting finalization of urine cultures Qualifiers: Urinary tract infection type: site unspecified Hematuria presence: without hematuria Qualified Code(s): N39.0 - Urinary tract infection, site not specified (3) Anemia Current Visit: No Status: Chronic Assessment and plan: Patient has history of severe iron deficiency and B12 deficiency anemia She follows Dr. Galdamez for management of her anemia along with follow up for her stage II colon cancer (currently in remission) H&H low but acceptable No active bleeding noted at this time Will continue to monitor Qualifiers: Anemia type: unspecified type Qualified Code(s): D64.9 - Anemia, unspecified (4) HTN (hypertension) Current Visit: Yes Status: Chronic Assessment and plan: BP within acceptable range will continue current management Qualifiers: Hypertension type: essential hypertension Qualified Code(s): I10 - Essential (primary) hypertension (5) Colon cancer Current Visit: No Status: Chronic Assessment and plan: currently in remission Qualifiers: Colon location: unspecified part of colon Qualified Code(s): C18.9 - Malignant neoplasm of colon, unspecified (6) DVT prophylaxis Current Visit: Yes Status: Acute Assessment and plan: Lovenox SQ - Subjective Interval history: Patient seen and examined at bedside. Resting comfortably in bed and reports of feeling better compared to the previous day. Earlier this morning patient was noted to be tachycardic and upon further evaluation was found to be in AFib with RVR with rate fluctuating between 120-150bpm. Patient was given Cardizem 10mg IVP x 1 dose with rate control. Pt remained asymptomatic throughout the episode and rate has been controlled throughout the day. - Constitutional Vitals: Temp Pulse Resp BP Pulse Ox 98.4 F 65 16 138/86 93 L 09/20/16 15:45 09/20/16 15:45 09/20/16 15:45 09/20/16 15:45 09/20/16 15:45 General appearance: Present: cooperative, A&O X 3, pleasant, no acute distress, underweight, answers questions appropriately - Head Head exam: Present: atraumatic, normocephalic - Eye Eye exam: Present: normal appearance, conjuntiva pink, sclera anicteric - Respiratory Respiratory exam: Present: CTAB. Absent: respiratory distress, wheezes - Cardiovascular Cardiovascular exam: Present: irregular rhythm, +S1, +S2 - GI/Abdominal GI/Abdominal exam: Present: normal bowel sounds, soft. Absent: distended, tenderness - Extremities Exam Extremities exam: Present: warm, radial pulses palpable and symetrical. Absent : calf tenderness, pedal edema - Neurological Exam Neurological exam: Present: alert, oriented X3, no focal deficits - Psychiatric Psychiatric exam: Present: normal affect, normal mood Internal Medicine: Result - Labs CBC & Chem 7: 09/20/16 04:40 09/20/16 04:40 Labs: Short CBC 09/20/16 Range/Units 04:40 WBC 8.6 (4.3-11.1) K/mcL Hgb 10.2 L (11.5-15.4) g/dL Hct 32.0 L (35.3-44.9) % Plt Count 155 (140-400) K/mcL Neutrophils # 7.2 (1.6-8.9) K/mcL BMP 09/20/16 04:40 Sodium 136 Potassium 3.3 L Chloride 105 Carbon Dioxide 23 BUN 7 Creatinine 0.53 L Glucose 110 H Calcium 8.1 L - VTE Documentation of Mechanical Device: Graduated compression elastic hosiery Consult Discharge Plan - Plan Referrals: Ishan Mclaughlin MD [Primary Care Provider] -
[2016-09-20] MEDS ORDERED: *HR* Enoxaparin 30 MG/0.3 ML SYRINGE SQ ONE (16:23)
[2016-09-20] MEDS: Aspirin Enteric Coated 81 MG Tablet PO SCH (17:34)
[2016-09-20] MEDS: Azithromycin 500 MG in D5% in Water 250 ML IVPB SCH (21:46)
[2016-09-20] MEDS: Famotidine 20 MG TABLET PO SCH (21:46)
[2016-09-21 05:47] LABS: Basophils % 0.4 %; Eosinophils % 0.4 %; Hematocrit 33.3 % (35.3-44.9); Hemoglobin 10.7 g/dL (11.5-15.4); Immature Granulocytes % 0.9 % (0-4); Lymphocytes # 0.9 K/mcL (0.6-4.6); Lymphocytes % 15.2 %; Mean Corpuscular HGB Conc 32.1 g/dL (31.6-35.5); Mean Corpuscular Hemoglobin 26.5 pg (28.0-33.3); Mean Corpuscular Volume 82.4 fL (83.0-100.0); Mean Platelet Volume 11.2 fL (9.4-12.4); Monocytes # 0.6 K/mcL (0.0-1.3); Monocytes % 10.1 %; Neutrophils # 4.1 K/mcL (1.6-8.9); Platelet Count 233 K/mcL (140-400); Red Blood Count 4.04 M/mcL (3.82-4.97)
[2016-09-21 05:49] LABS: BUN/Creatinine Ratio 11 (6-26); Blood Urea Nitrogen 6 mg/dL (7-20); Carbon Dioxide 24 mEq/L (19-29); Chloride 104 mEq/L (98-109); Glucose 109 mg/dL (70-99); Magnesium 1.3 mg/dL (1.6-2.6); Osmolality,Calculated 282 (280-300); Phosphorous 2.4 mg/dL (2.3-4.7); Potassium 3.9 mEq/L (3.5-4.5); Sodium 137 mEq/L (136-145); eGFR For African Americans > 60 (> 60); eGFR For Non-African Americans > 60 (> 60)
[2016-09-21] MEDS ORDERED: *HR* Enoxaparin 30 MG/0.3 ML SYRINGE SQ SCH (06:00)
[2016-09-21] MEDS ORDERED: Magnesium Sulfate 2 GM in D5% in Water 100 ML IVPB ONE (08:11)
[2016-09-21] MEDS: Aspirin Enteric Coated 81 MG Tablet PO SCH (09:04)
--- NOTE | 2016-09-21 09:26 | Cardiology Consult Note ---
Date of Encounter: 09/21/16 Time of Encounter: 08:30 Assessment and Plan (1) Influenza A Current Visit: Yes Status: Acute Per cardiology: -Pateint Flu A positive, negative for B at [place] [facility] on 09/15. Pt did not get rx for Tamiflu filled until yesterday and only took one tablet. -Patient states she has been sick since 09/11 -Admits vomiting, diarrhea, productive cough, congestion. -Management per primary service. -Continue current therapy. -May be a contributing factor to atrial fibrillation. (EMILY) (2) Atrial fibrillation Current Visit: Yes Status: Acute Per cardiology: -Patient with known history of paroxysmal atrial fibrillation. -Patient was being rate and suspected ryhthm controlled as outpatient with metoprolol. 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 Previous records reviewed from cardiology and appears patient has previously declined Coumadin. Patient reports she lives at home with her daughter and is active driving and does room grocery shopping. She denies any falls. Denies any active bleeding or blood loss. -Was given 10mg IV cardizem x1 09/20/16 with rate control per primary service. Metoprolol was increased from 12.5 mg BID to 50mg BID per primary service. -[place] fibrillation with HR 158 per telemtry this am, now in afib 80's to 90's on tele. -[id number] score is 5. retirement anticoagulation recommended. -Discusssed at length regarding [facility] anticoagulation with patient. Patient agreeable for anticoagulation. -Will yo check eliquis for patient. -TSH 1.750. -Echocardiogram 2011 with EF 60%, mild-moderate TR. -Stress test 2011 negative for ischemia. -Carotid duplex 2014 with right ICA 60-79% stenosis. -Appears to be better rate controlled with increased dose of beta carol. We' ll continue to monitor heart rate and blood pressure. -Will yo check eliquis 2.5 mg by mouth twice a day (age over 80, wt less than 60kg). May need coumadin if eliquis in unaffordable for pateint. (EMILY) Qualifiers: Atrial fibrillation type: paroxysmal Qualified Code(s): I48.0 - Paroxysmal atrial fibrillation (3) Anemia Current Visit: No Status: Chronic Per cardiology: -Patient with known history of anemia. Patient follows with . -HGB today 10.7 -HGB trend between 9-12. -Management per primary service. -May be contributing factor to atrial fibrillation. (EMILY) Qualifiers: Anemia type: unspecified type Qualified Code(s): D64.9 - Anemia, unspecified (4) UTI (urinary tract infection) Current Visit: Yes Status: Acute Per cardiology: -Pt was seen at [place] ED on 09/15, diagnosed with UTI and given prescription that she did not get filled until yesterday. She took one pill and said that they made her sick and did not take anymore. -Patient currently on zithromax. -Management per primary service. -May be contributing factor to atrial fibrillation. (EMILY) Qualifiers: Urinary tract infection type: acute cystitis Hematuria presence: without hematuria Qualified Code(s): N30.00 - Acute cystitis without hematuria (5) Hypomagnesemia Current Visit: Yes Status: Acute Per cardiology: -Magnesium today 1.3. Order for Mg replacement given by primary service. -Management per primary service. -May be contributing factor to atrial fibrillation. (EMILY). Discussion w patient/family: The assessment and plan as outlined above was discussed with the patient who expressed understanding and agreement. All questions were answered. Thank you for involving us in the care of your patient. Please call with any questions. Patient was seen and examined with CROW Owens. Discussed and reviewed with . History of Present Illness Consult date: 09/21/16 Requesting physician: Jessica Pennington Consult reason: a.fib RVR, new onset Chief complaint: vomiting, diarhea History of present illness: Ms. Zaragoza is a 81 year old female who states she has been "sick" at home for 2 weeks. Patient admits vomiting, diarrhea, productive cough, and congestion. Patient was admitted to [facility] and noted to be influenza A positive. Also ntoed, patient with UTI. While inpatient, patient noted to be atrial fibrillation with rapid ventriuclar reponse on 09/20/16. Patient was given 10mg of cardizem IV per primary service, with resolution of rapid ventricular response. Primary service also increased patients home dose of metoprolol from 12.5mg BID to 50mg BID. 09/21 patient still noted to be atrial fibrillation with rapid ventricular response per primary service and cardiology was consulted. Patient states she has had atrial fibrillation with RVR in the past. Pateint states she can remember 2 episodes of this. One in 2008 when she was diagnosed with colon CA. The other time she states was in 2014. Patient states "it seems to happen when I am really sick." Patient states with her past episodes, she was given metoprolol for rate control and was previously on coumadin. Patient is not currently on coumadin. Patient states she follows with . Patient states she tolerated coumadin well. Pateint states she has nto had an echocardiogram recently. Patient also states that she feels her heart may be out of rhythm now because she just got news that her daughter has been admitted to ICU. Emotional support provided. (EMILY) Past Med Surg Social Fam HX - Past Medical History Attestation: Yes The following information was validated with the patient. Source: patient, old records reviewed Medical history: atrial fibrillation, cancer, hyperlipidemia, valvular heart disease Psychiatric history: no psych history - Social History Smoking Status: Never smoker Smokeless Tobacco Status: No Alcohol use: none Drug use: none - Family History Mother Hx Family Cancer: Yes Father Hx Family Cardiac Disorders: Yes Medications and Allergies Metoprolol [Lopressor] 12.5 mg PO BID 08/30/16 [History] Allergies Penicillins [PCN] Allergy (Verified 08/30/16 14:12) Rash Sulfa (Sulfonamide Antibiotics) Allergy (Verified 08/30/16 14:12) Vomiting All Systems Review: A 10-system review of systems was performed and is negative for pertinent findings except as documented above in the HPI. - Constitutional Constitutional: fatigue - Cardiovascular Cardiovascular: as per HPI - Respiratory Respiratory: cough - Gastrointestinal Gastrointestinal: diarrhea, nausea - Genitourinary Genitourinary: dysuria - Psychiatric Psychiatric: anxiety Physical Examination Vital Signs, Last 4 Hours Temp Pulse Resp BP Pulse Ox 09/21/16 07:22 98.4 F 148 17 143/75 97 General: Conversant, No Apparent Distress HEENT: Atraumatic, Normocephaly, Mucus Membranes Moist Neck: No JVD, Normal carotid pulses Cardiac: Other (Irregularly, irregular. Tachycardic. ) Lungs: Other (Left lower lobe crackles noted. ) Neuro: Alert and responsive, No focal deficits noted Abdomen: Soft, Non-Tender Skin: No rashes noted on visualized skin Musculoskeletal: No Chest Wall Tenderness Extremities: No Clubbing, No Cyanosis, No Edema, Other (Bilateral pedal pulses 1 +) Results 09/21/16 04:44 09/21/16 04:44 Lab Results Laboratory Tests 07/06/14 01/31/15 09/18/16 05:45 14:08 15:20 WBC 11.9 H D Hgb 9.6 L D 11.2 L 11.6 D Hct 35.5 Potassium TSH Influenza A (H3) PCR 09/19/16 09/19/16 09/20/16 04:08 04:56 04:40 WBC Hgb Hct Potassium 3.3 L TSH 1.750 Influenza A (H3) PCR DETECTED A 09/21/16 09/21/16 04:44 04:44 WBC 5.6 Hgb 10.7 L Hct 33.3 L Potassium 3.9 TSH Influenza A (H3) PCR ITS Impressions Chest X-Ray 09/19/16 07:00 IMPRESSION: 1. Stable mild enlargement of the cardiac silhouette. No superimposed acute pulmonary abnormality. 2. Emphysema. D/ / Santiago March MD / Santiago March MD Interpreting Provider: Santiago March MD Active Medications Acetaminophen (Tylenol) 650 mg PO Q6HR PRN PRN Reason: Mild Pain (1-3) Stop: 03/20/17 21:06 Al Hydrox/Mg Hydrox/Simethicone (Maalox) 15 ml PO Q6HR PRN PRN Reason: Dyspepsia Stop: 03/20/17 21:06 Albuterol/Ipratropium (Duoneb) 3 ml IH [id number] PRN; Protocol PRN Reason: Shortness Of Breath/Wheezing Stop: 03/20/17 21:42 Aspirin (Aspirin Ec) 81 mg PO DAILY LYNNETTE Stop: 03/22/17 16:31 Last Admin: 09/21/16 09:04 Dose: 81 mg Benzonatate (Tessalon) 200 mg PO TID PRN PRN Reason: Cough Stop: 03/21/17 00:03 Last Admin: 09/19/16 08:27 Dose: 200 mg Docusate Sodium (Colace) 100 mg PO BID PRN PRN Reason: Constipation Stop: 03/20/17 21:06 Enoxaparin Sodium (Lovenox) 30 mg SQ 0600 [facility] PRN Reason: Protocol Stop: 03/23/17 06:01 Last Admin: 09/21/16 05:09 Dose: 30 mg Famotidine (Pepcid) 20 mg PO DAILY@2100 [facility] Stop: 03/21/17 09:01 Last Admin: 09/20/16 21:46 Dose: 20 mg Guaifenesin (Mucinex) 600 mg PO BID [facility] Stop: 03/21/17 09:01 Last Admin: 09/21/16 09:04 Dose: 600 mg Ceftriaxone Sodium 1,000 mg/ (Dextrose) 100 mls @ 200 mls/hr IVPB Q24H [facility] Stop: 03/21/17 18:01 Last Infusion: 09/21/16 09:05 Dose: Infused Azithromycin 500 mg/ Dextrose 250 mls @ 252 mls/hr IVPB Q24H [facility] Stop: 03/20/17 22:01 Last Infusion: 09/21/16 09:05 Dose: Infused Magnesium Hydroxide (Milk Of Magnesia Conc) 10 ml PO DAILY PRN PRN Reason: Indigestion Stop: 03/20/17 21:06 Metoprolol Tartrate (Lopressor) 50 mg PO BID [facility] Stop: 03/23/17 09:01 Last Admin: 09/21/16 09:04 Dose: 50 mg Morphine Sulfate (Morphine Sulfate) 2 mg IVP Q4HR PRN PRN Reason: Severe Pain (7-10) Stop: 03/21/17 00:04 Naloxone HCl (Narcan) 0.4 mg IVP Q2MIN PRN PRN Reason: Opioid Reversal Stop: 03/20/17 21:06 Ondansetron HCl (Zofran) 4 mg IVP Q8HR PRN PRN Reason: Nausea And Vomiting Stop: 03/20/17 21:06 Oxycodone HCl (Roxicodone) 5 mg PO Q6HR PRN PRN Reason: Moderate Pain (4-6) Stop: 03/21/17 00:04 - Imaging and Cardiology Chest Xray: report reviewed - EKG Interpretation EKG results cardiology: personally reviewed (No 12 lead ECG available for review.), other (24 hour telemetry reviewed with average heart rate 107, atrial fibrillation. Maximum heart rate noted at 160, atrial fibrillation. Occasional PVCs and one couplet PVCs noted. On telemetry currently atrial fibrillation at 158 beats/minute.) Consult Discharge Plan - Plan Referrals: Ishan Mclaughlin MD [Primary Care Provider] -
--- NOTE | 2016-09-21 15:07 | Internal Med Progress Note ---
Date of Encounter: 09/21/16 Time of Encounter: 15:04 - Assessment and plan (1) Atrial fibrillation Current Visit: Yes Status: Acute Assessment and plan: Cardiology consultation appreciated Rate currently controlled with Metoprolol ROGELIO VASC: 5, patient at high risk for stroke therefore will benefit from anticoagulation Started Eliquis If remains stable overnight,likely d/c in am. Qualifiers: Atrial fibrillation type: paroxysmal Qualified Code(s): I48.0 - Paroxysmal atrial fibrillation (2) Urinary tract infection Current Visit: No Status: Acute Assessment and plan: Continue IV abx will complete therapy for 7 days Qualifiers: Urinary tract infection type: site unspecified Hematuria presence: without hematuria Qualified Code(s): N39.0 - Urinary tract infection, site not specified (3) Anemia Current Visit: No Status: Chronic Assessment and plan: Patient has history of severe iron deficiency and B12 deficiency anemia She follows Dr. Galdamez for management of her anemia along with follow up for her stage II colon cancer (currently in remission) H&H low but acceptable No active bleeding noted at this time Will continue to monitor Qualifiers: Anemia type: unspecified type Qualified Code(s): D64.9 - Anemia, unspecified (4) HTN (hypertension) Current Visit: Yes Status: Chronic Assessment and plan: BP within acceptable range will continue current management Qualifiers: Hypertension type: essential hypertension Qualified Code(s): I10 - Essential (primary) hypertension (5) Colon cancer Current Visit: No Status: Chronic Assessment and plan: currently in remission Qualifiers: Colon location: unspecified part of colon Qualified Code(s): C18.9 - Malignant neoplasm of colon, unspecified (6) DVT prophylaxis Current Visit: Yes Status: Acute Assessment and plan: Lovenox SQ (7) Hypomagnesemia Current Visit: Yes Status: Acute Assessment and plan: Mg supplemented will continue to monitor electrolytes and replace as needed - Subjective Interval history: Patient seen and examined at bedside. Overnight patient noted to have recurrence of Afib with RVR requiring increase in Metoprolol dosing. This morning patient found out that her daughter was critically sick and admitted to the ICU which further worsened her arrhythmia this morning. Patient's rate is currently controlled with Metoprolol. Cardiology was consulted for paroxysmal Afib. AT this time patient is resting in bed and denies any discomfort at this time. - Constitutional Vitals: Temp Pulse Resp BP Pulse Ox 98.2 F 79 18 126/74 98 09/21/16 11:04 09/21/16 11:04 09/21/16 11:04 09/21/16 11:04 09/21/16 11:04 General appearance: Present: cooperative, A&O X 3, pleasant, no acute distress, underweight, answers questions appropriately - Head Head exam: Present: atraumatic, normocephalic - Eye Eye exam: Present: conjuntiva pink, sclera anicteric - Respiratory Respiratory exam: Present: CTAB. Absent: respiratory distress, wheezes - Cardiovascular Cardiovascular exam: Present: irregular rhythm, +S1, +S2 - GI/Abdominal GI/Abdominal exam: Present: normal bowel sounds, soft, no peritoneal signs. Absent: distended, tenderness - Extremities Exam Extremities exam: Present: warm, radial pulses palpable and symetrical. Absent : calf tenderness, cyanotic, pedal edema - Neurological Exam Neurological exam: Present: alert, oriented X3 - Psychiatric Psychiatric exam: Present: normal affect, normal mood Internal Medicine: Result - Labs CBC & Chem 7: 09/21/16 04:44 09/21/16 04:44 Labs: Short CBC 09/21/16 Range/Units 04:44 WBC 5.6 (4.3-11.1) K/mcL Hgb 10.7 L (11.5-15.4) g/dL Hct 33.3 L (35.3-44.9) % Plt Count 233 D (140-400) K/mcL Neutrophils # 4.1 (1.6-8.9) K/mcL BMP 09/21/16 04:44 Sodium 137 Potassium 3.9 Chloride 104 Carbon Dioxide 24 BUN 6 L Creatinine 0.55 L Glucose 109 H Calcium 8.0 L - VTE Documentation of Mechanical Device: Graduated compression elastic hosiery Consult Discharge Plan - Plan Referrals: Ishan Mclaughlin MD [Primary Care Provider] -
--- NOTE | 2016-09-21 15:46 | Event Note ---
Date of Encounter: 09/21/16 Time of Encounter: 15:30 - Cardiology Event Note Correction: Eliquis $8/month. HR remains controlled in 70's - 80's, afib, with increased dose of BB. Discussed with Dr. Grimes, will s/o, re-consult PRN, f/u scheduled as outpatient. Monitor SBP and HR closely. All questions answered.
--- NOTE | 2016-09-21 17:18 | Electrocardiograph Report ---
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
[2016-09-21] MEDS: Azithromycin 500 MG in D5% in Water 250 ML IVPB SCH (21:36)
[2016-09-21] MEDS: APIXABAN 2.5 MG TABLET PO SCH (21:37)
[2016-09-21] MEDS: Famotidine 20 MG TABLET PO SCH (21:54)
[2016-09-22 03:57] LABS: Basophils % 0.4 %; Eosinophils % 0.7 %; Hematocrit 33.3 % (35.3-44.9); Hemoglobin 10.6 g/dL (11.5-15.4); Immature Granulocytes % 1.1 % (0-4); Lymphocytes # 0.6 K/mcL (0.6-4.6); Lymphocytes % 11.3 %; Mean Corpuscular HGB Conc 31.8 g/dL (31.6-35.5); Mean Corpuscular Hemoglobin 26.3 pg (28.0-33.3); Mean Corpuscular Volume 82.6 fL (83.0-100.0); Mean Platelet Volume 10.8 fL (9.4-12.4); Monocytes # 0.7 K/mcL (0.0-1.3); Monocytes % 12.2 %; Platelet Count 284 K/mcL (140-400); Red Blood Count 4.03 M/mcL (3.82-4.97); Red Cell Distribution Width 15.2 % (11.5-14.5); Segmented Neutrophils % 74.3 %
[2016-09-22 04:09] LABS: BUN/Creatinine Ratio 12 (6-26); Blood Urea Nitrogen 7 mg/dL (7-20); Calcium 7.9 mg/dL (8.6-10.8); Carbon Dioxide 25 mEq/L (19-29); Chloride 103 mEq/L (98-109); Glucose 123 mg/dL (70-99); Magnesium 1.7 mg/dL (1.6-2.6); Osmolality,Calculated 283 (280-300); Phosphorous 2.9 mg/dL (2.3-4.7); Sodium 137 mEq/L (136-145); eGFR For African Americans > 60 (> 60); eGFR For Non-African Americans > 60 (> 60)
[2016-09-22] MEDS ORDERED: *HR* Metoprolol 5 MG/5 ML VIAL IVP ONE (04:42)
[2016-09-22] MEDS ORDERED: 0.9 % Sodium Chloride 250 ML IVC ONE ×2 (04:43→06:06)
[2016-09-22 04:46] LABS: Neutrophils # 4.2 K/mcL (1.6-8.9)
[2016-09-22 04:47] LABS: Platelet Estimate Normal (Normal)
[2016-09-22 04:48] LABS: Large Platelets Present (Not Present); Reactive Lymphocytes Present (Not Present)
[2016-09-22] MEDS: APIXABAN 2.5 MG TABLET PO SCH ×2 (08:45→21:47)
[2016-09-22] MEDS: Aspirin Enteric Coated 81 MG Tablet PO SCH (08:46)
--- NOTE | 2016-09-22 15:18 | Internal Med Progress Note ---
Date of Encounter: 09/22/16 Time of Encounter: 15:16 - Assessment and plan (1) Atrial fibrillation Current Visit: Yes Status: Acute Assessment and plan: Cardiology consultation appreciated Rate currently controlled with Metoprolol ROGELIO VASC: 5, patient at high risk for stroke therefore will benefit from anticoagulation Started Eliquis Discharge pending arrangement of home health services Qualifiers: Atrial fibrillation type: paroxysmal Qualified Code(s): I48.0 - Paroxysmal atrial fibrillation (2) Urinary tract infection Current Visit: No Status: Acute Assessment and plan: Continue IV abx will complete therapy for 7 days Qualifiers: Urinary tract infection type: site unspecified Hematuria presence: without hematuria Qualified Code(s): N39.0 - Urinary tract infection, site not specified (3) Anemia Current Visit: No Status: Chronic Assessment and plan: Patient has history of severe iron deficiency and B12 deficiency anemia She follows Dr. Galdamez for management of her anemia along with follow up for her stage II colon cancer (currently in remission) H&H low but acceptable No active bleeding noted at this time Will continue to monitor Qualifiers: Anemia type: unspecified type Qualified Code(s): D64.9 - Anemia, unspecified (4) HTN (hypertension) Current Visit: Yes Status: Chronic Assessment and plan: BP within acceptable range will continue current management Qualifiers: Hypertension type: essential hypertension Qualified Code(s): I10 - Essential (primary) hypertension (5) Colon cancer Current Visit: No Status: Chronic Assessment and plan: currently in remission Qualifiers: Colon location: unspecified part of colon Qualified Code(s): C18.9 - Malignant neoplasm of colon, unspecified (6) DVT prophylaxis Current Visit: Yes Status: Acute Assessment and plan: anticoagulated with Eliquis (7) Hypomagnesemia Current Visit: Yes Status: Resolved Assessment and plan: will continue to monitor electrolytes and replace as needed - Subjective Interval history: Patient seen and examined at bedside. Resting comfortably in bed and no complains at this time. No overnight issues reported. Started Eliquis. D/C pending home health arrangement. executive secretary social welfare services consulted. Patient lives with daughter who helps her at home however her daughter is currently ill and hospitalized due to which patient is unsafe to be discharged to home without arrangement of home health services. - Constitutional Vitals: Temp Pulse Resp BP Pulse Ox 97.6 F 83 15 114/82 97 09/22/16 11:21 09/22/16 11:21 09/22/16 11:21 09/22/16 11:21 09/22/16 11:21 General appearance: Present: cooperative, A&O X 3, pleasant, no acute distress, underweight, answers questions appropriately - Head Head exam: Present: atraumatic, normocephalic - Eye Eye exam: Present: PERRL, conjuntiva pink, sclera anicteric - Respiratory Respiratory exam: Present: CTAB. Absent: accessory muscle use, rales, rhonchi, wheezes - Cardiovascular Cardiovascular exam: Present: irregular rhythm, +S1, +S2 - GI/Abdominal GI/Abdominal exam: Present: normal bowel sounds, soft, no peritoneal signs. Absent: distended, tenderness - Extremities Exam Extremities exam: Present: warm, radial pulses palpable and symetrical. Absent : calf tenderness, cyanotic, pedal edema - Neurological Exam Neurological exam: Present: alert, oriented X3 - Psychiatric Psychiatric exam: Present: normal affect, normal mood Internal Medicine: Result - Labs CBC & Chem 7: 09/22/16 03:23 09/22/16 03:23 Labs: Short CBC 09/22/16 Range/Units 03:23 WBC 5.6 (4.3-11.1) K/mcL Hgb 10.6 L (11.5-15.4) g/dL Hct 33.3 L (35.3-44.9) % Plt Count 284 (140-400) K/mcL Neutrophils # 4.2 (1.6-8.9) K/mcL BMP 09/22/16 03:23 Sodium 137 Potassium 4.0 Chloride 103 Carbon Dioxide 25 BUN 7 Creatinine 0.57 Glucose 123 H Calcium 7.9 L - VTE Documentation of Mechanical Device: Graduated compression elastic hosiery Consult Discharge Plan - Plan Referrals: Ishan Mclaughlin MD [Primary Care Provider] -
[2016-09-22] MEDS: Famotidine 20 MG TABLET PO SCH (21:54)
[2016-09-22] MEDS: Azithromycin 500 MG in D5% in Water 250 ML IVPB SCH (22:05)
[2016-09-23 02:20] LABS: Basophils % 0.3 %; Eosinophils # 0.1 K/mcL (0.0-0.6); Eosinophils % 2.2 %; Hematocrit 32.1 % (35.3-44.9); Lymphocytes # 0.8 K/mcL (0.6-4.6); Lymphocytes % 13.5 %; Mean Corpuscular HGB Conc 31.2 g/dL (31.6-35.5); Mean Corpuscular Volume 83.6 fL (83.0-100.0); Mean Platelet Volume 10.5 fL (9.4-12.4); Monocytes # 0.7 K/mcL (0.0-1.3); Monocytes % 12.5 %; Neutrophils # 4.2 K/mcL (1.6-8.9); Platelet Count 319 K/mcL (140-400); Red Blood Count 3.84 M/mcL (3.82-4.97); Red Cell Distribution Width 15.1 % (11.5-14.5); Segmented Neutrophils % 70.5 %
[2016-09-23 02:22] LABS: BUN/Creatinine Ratio 19 (6-26); Blood Urea Nitrogen 11 mg/dL (7-20); Calcium 7.9 mg/dL (8.6-10.8); Carbon Dioxide 24 mEq/L (19-29); Chloride 105 mEq/L (98-109); Glucose 100 mg/dL (70-99); Magnesium 1.8 mg/dL (1.6-2.6); Osmolality,Calculated 283 (280-300); Phosphorous 2.7 mg/dL (2.3-4.7); Potassium 3.8 mEq/L (3.5-4.5); Sodium 137 mEq/L (136-145); eGFR For African Americans > 60 (> 60); eGFR For Non-African Americans > 60 (> 60)
[2016-09-23] MEDS: APIXABAN 2.5 MG TABLET PO SCH ×2 (08:20→22:55)
[2016-09-23] MEDS: Aspirin Enteric Coated 81 MG Tablet PO SCH (08:20)
--- NOTE | 2016-09-23 14:21 | Internal Med Progress Note ---
Date of Encounter: 09/23/16 Time of Encounter: 14:19 - Assessment and plan (1) Atrial fibrillation Current Visit: Yes Status: Acute Assessment and plan: Cardiology consultation appreciated Noted to have refractory afib with rvr with poor rate control despite Metoprolol dosing Will add Cardizem 120mg PO qd in addition to Metoprolol for better rate control ROGELIO VASC: 5, patient at high risk for stroke therefore will benefit from anticoagulation contine Eliquis Discharge in am Qualifiers: Atrial fibrillation type: paroxysmal Qualified Code(s): I48.0 - Paroxysmal atrial fibrillation (2) Urinary tract infection Current Visit: No Status: Inactive Assessment and plan: Continue IV abx will complete therapy for 7 days Qualifiers: Urinary tract infection type: site unspecified Hematuria presence: without hematuria Qualified Code(s): N39.0 - Urinary tract infection, site not specified (3) Anemia Current Visit: No Status: Chronic Assessment and plan: Patient has history of severe iron deficiency and B12 deficiency anemia She follows Dr. Galdamez for management of her anemia along with follow up for her stage II colon cancer (currently in remission) H&H low but acceptable No active bleeding noted at this time Will continue to monitor Qualifiers: Anemia type: unspecified type Qualified Code(s): D64.9 - Anemia, unspecified (4) HTN (hypertension) Current Visit: Yes Status: Chronic Assessment and plan: BP within acceptable range will continue current management Qualifiers: Hypertension type: essential hypertension Qualified Code(s): I10 - Essential (primary) hypertension (5) Colon cancer Current Visit: No Status: Chronic Assessment and plan: currently in remission Qualifiers: Colon location: unspecified part of colon Qualified Code(s): C18.9 - Malignant neoplasm of colon, unspecified (6) DVT prophylaxis Current Visit: Yes Status: Acute Assessment and plan: anticoagulated with Eliquis (7) Hypomagnesemia Current Visit: Yes Status: Resolved Assessment and plan: will continue to monitor electrolytes and replace as needed - Subjective Interval history: Patient seen and examined at bedside. Resting comfortably in bed and no complains at this time. No overnight issues reported. Started Eliquis. This morning reported of having poor rate control and required one time dose of Cardizem 10mg IVP. Rate controlled throughout the day with Metoprolol Patient refusing home health at this time however states her daughter is in the hospital and her granddaughter will not be able to take care of her until tomorrow, therefore d/c in am. - Constitutional Vitals: Temp Pulse Resp BP Pulse Ox 98.0 F 71 18 117/63 98 09/23/16 12:06 09/23/16 12:06 09/23/16 12:06 09/23/16 12:06 09/23/16 12:06 General appearance: Present: cooperative, A&O X 3, pleasant, no acute distress, underweight, answers questions appropriately - Head Head exam: Present: atraumatic, normocephalic - Eye Eye exam: Present: PERRL, conjuntiva pink, sclera anicteric - Respiratory Respiratory exam: Present: CTAB. Absent: accessory muscle use, rales, rhonchi, wheezes - Cardiovascular Cardiovascular exam: Present: irregular rhythm, +S1, +S2. Absent: diastolic murmur, gallop, rubs, systolic murmur, tachycardia - GI/Abdominal GI/Abdominal exam: Present: normal bowel sounds, soft, no peritoneal signs. Absent: distended, tenderness - Extremities Exam Extremities exam: Present: warm, radial pulses palpable and symetrical. Absent : calf tenderness, cyanotic, pedal edema - Neurological Exam Neurological exam: Present: alert, oriented X3 - Psychiatric Psychiatric exam: Present: normal affect, normal mood Internal Medicine: Result - Labs CBC & Chem 7: 09/23/16 01:42 09/23/16 01:42 Labs: Short CBC 09/23/16 Range/Units 01:42 WBC 5.9 (4.3-11.1) K/mcL Hgb 10.0 L (11.5-15.4) g/dL Hct 32.1 L (35.3-44.9) % Plt Count 319 (140-400) K/mcL Neutrophils # 4.2 (1.6-8.9) K/mcL BMP 09/23/16 01:42 Sodium 137 Potassium 3.8 Chloride 105 Carbon Dioxide 24 BUN 11 Creatinine 0.59 Glucose 100 H Calcium 7.9 L - VTE Documentation of Mechanical Device: Graduated compression elastic hosiery Consult Discharge Plan - Plan Referrals: Ishan Mclaughlin MD [Primary Care Provider] -
[2016-09-23] MEDS: Famotidine 20 MG TABLET PO SCH (22:55)
[2016-09-23] MEDS: Azithromycin 500 MG in D5% in Water 250 ML IVPB SCH (22:55)
[2016-09-24 05:30] LABS: Basophils % 0.6 %; Eosinophils # 0.1 K/mcL (0.0-0.6); Eosinophils % 1.5 %; Hematocrit 31.7 % (35.3-44.9); Hemoglobin 9.7 g/dL (11.5-15.4); Immature Granulocytes % 1.8 % (0-4); Lymphocytes # 0.8 K/mcL (0.6-4.6); Lymphocytes % 15.5 %; Mean Corpuscular HGB Conc 30.6 g/dL (31.6-35.5); Mean Corpuscular Hemoglobin 25.9 pg (28.0-33.3); Mean Corpuscular Volume 84.8 fL (83.0-100.0); Monocytes # 0.8 K/mcL (0.0-1.3); Monocytes % 14.9 %; Neutrophils # 3.6 K/mcL (1.6-8.9); Platelet Count 387 K/mcL (140-400); Red Blood Count 3.74 M/mcL (3.82-4.97); Red Cell Distribution Width 15.2 % (11.5-14.5); Segmented Neutrophils % 65.7 %
[2016-09-24 05:46] LABS: BUN/Creatinine Ratio 13 (6-26); Blood Urea Nitrogen 8 mg/dL (7-20); Calcium 8.3 mg/dL (8.6-10.8); Carbon Dioxide 27 mEq/L (19-29); Chloride 104 mEq/L (98-109); Glucose 101 mg/dL (70-99); Magnesium 1.7 mg/dL (1.6-2.6); Osmolality,Calculated 280 (280-300); Phosphorous 3.3 mg/dL (2.3-4.7); Sodium 136 mEq/L (136-145); eGFR For African Americans > 60 (> 60); eGFR For Non-African Americans > 60 (> 60)
[2016-09-24] MEDS: Aspirin Enteric Coated 81 MG Tablet PO SCH (09:36)
[2016-09-24] MEDS: APIXABAN 2.5 MG TABLET PO SCH ×2 (09:40→21:26)
--- NOTE | 2016-09-24 13:47 | Internal Med Progress Note ---
Date of Encounter: 09/24/16 Time of Encounter: 13:41 - Assessment and plan (1) Atrial fibrillation Current Visit: Yes Status: Acute Assessment and plan: Cardiology consultation appreciated Noted to have refractory afib with rvr with poor rate control despite Metoprolol dosing Started Cardizem 120mg PO qd in addition to Metoprolol for better rate control ROGELIO VASC: 5, patient at high risk for stroke therefore will benefit from anticoagulation contine Eliquis Discharge in am Qualifiers: Atrial fibrillation type: paroxysmal Qualified Code(s): I48.0 - Paroxysmal atrial fibrillation (2) Urinary tract infection Current Visit: No Status: Inactive Assessment and plan: Continue IV abx will complete therapy for 7 days Qualifiers: Urinary tract infection type: site unspecified Hematuria presence: without hematuria Qualified Code(s): N39.0 - Urinary tract infection, site not specified (3) Anemia Current Visit: No Status: Chronic Assessment and plan: Patient has history of severe iron deficiency and B12 deficiency anemia She follows Dr. Galdamez for management of her anemia along with follow up for her stage II colon cancer (currently in remission) H&H low but acceptable No active bleeding noted at this time Will continue to monitor Qualifiers: Anemia type: unspecified type Qualified Code(s): D64.9 - Anemia, unspecified (4) HTN (hypertension) Current Visit: Yes Status: Chronic Assessment and plan: BP within acceptable range will continue current management Qualifiers: Hypertension type: essential hypertension Qualified Code(s): I10 - Essential (primary) hypertension (5) Colon cancer Current Visit: No Status: Chronic Assessment and plan: currently in remission Qualifiers: Colon location: unspecified part of colon Qualified Code(s): C18.9 - Malignant neoplasm of colon, unspecified (6) DVT prophylaxis Current Visit: Yes Status: Acute Assessment and plan: anticoagulated with Eliquis (7) Hypomagnesemia Current Visit: Yes Status: Resolved Assessment and plan: will continue to monitor electrolytes and replace as needed - Subjective Interval history: Patient seen and examined at bedside. Patient resting comfortably in bed and in no distress at this time. Patient reported to not receive her Cardizem dose yesterday evening and was noted to be in A. fib with rate ranging between 100 and 130s. Patient received Cardizem 120 mg by mouth with rate control, however she was noted to have telemetry readings of heart rate dropping in the 50s. At this time patient's heart rate is within acceptable range. Due to the uncontrolled A. fib, and initiation of by mouth Cardizem today, we will monitor for 24 hours, and DC in the morning. - Constitutional Vitals: Temp Pulse Resp BP Pulse Ox 97.9 F 83 18 105/69 95 09/24/16 10:53 09/24/16 10:53 09/24/16 10:53 09/24/16 10:53 09/24/16 10:53 General appearance: Present: cooperative, A&O X 3, pleasant, no acute distress, underweight, answers questions appropriately - Head Head exam: Present: atraumatic, normocephalic - Eye Eye exam: Present: PERRL, conjuntiva pink, sclera anicteric - Respiratory Respiratory exam: Present: CTAB. Absent: accessory muscle use, rales, rhonchi, wheezes - Cardiovascular Cardiovascular exam: Present: irregular rhythm, +S1, +S2. Absent: tachycardia - GI/Abdominal GI/Abdominal exam: Present: normal bowel sounds, soft, no peritoneal signs. Absent: distended, tenderness - Extremities Exam Extremities exam: Present: warm, radial pulses palpable and symetrical. Absent : calf tenderness, cyanotic, pedal edema - Neurological Exam Neurological exam: Present: alert, oriented X3, no focal deficits - Psychiatric Psychiatric exam: Present: normal affect, normal mood Internal Medicine: Result - Labs CBC & Chem 7: 09/24/16 04:46 09/24/16 04:46 Labs: Short CBC 09/24/16 Range/Units 04:46 WBC 5.4 (4.3-11.1) K/mcL Hgb 9.7 L (11.5-15.4) g/dL Hct 31.7 L (35.3-44.9) % Plt Count 387 (140-400) K/mcL Neutrophils # 3.6 (1.6-8.9) K/mcL BMP 09/24/16 04:46 Sodium 136 Potassium 4.0 Chloride 104 Carbon Dioxide 27 BUN 8 Creatinine 0.60 Glucose 101 H Calcium 8.3 L - VTE Documentation of Mechanical Device: Graduated compression elastic hosiery Consult Discharge Plan - Plan Referrals: Didier Rossi MD [Partnered Physician] - 10/03/16 9:30 am (Your follow up appointment will be at the [place] [facility].) Ishan Mclaughlin MD [Primary Care Provider] -
[2016-09-24] MEDS: Diltiazem CD (24hr) 120 MG CAPSULE PO SCH (16:21)
[2016-09-24] MEDS ORDERED: Diltiazem CD (24hr) 120 MG CAPSULE PO SCH (18:00)
[2016-09-24] MEDS: Azithromycin 500 MG in D5% in Water 250 ML IVPB SCH (21:26)
[2016-09-24] MEDS: Famotidine 20 MG TABLET PO SCH (21:27)
[2016-09-25 06:51] LABS: Basophils % 0.5 %; Eosinophils # 0.1 K/mcL (0.0-0.6); Eosinophils % 1.6 %; Hematocrit 33.1 % (35.3-44.9); Hemoglobin 10.2 g/dL (11.5-15.4); Immature Granulocytes % 1.8 % (0-4); Lymphocytes % 22.6 %; Mean Corpuscular HGB Conc 30.8 g/dL (31.6-35.5); Mean Corpuscular Volume 84.4 fL (83.0-100.0); Mean Platelet Volume 9.8 fL (9.4-12.4); Monocytes # 0.6 K/mcL (0.0-1.3); Monocytes % 13.6 %; Neutrophils # 2.6 K/mcL (1.6-8.9); Platelet Count 463 K/mcL (140-400); Red Blood Count 3.92 M/mcL (3.82-4.97); Red Cell Distribution Width 15.5 % (11.5-14.5); Segmented Neutrophils % 59.9 %
[2016-09-25 07:10] LABS: BUN/Creatinine Ratio 14 (6-26); Blood Urea Nitrogen 8 mg/dL (7-20); Calcium 8.2 mg/dL (8.6-10.8); Carbon Dioxide 27 mEq/L (19-29); Chloride 104 mEq/L (98-109); Glucose 91 mg/dL (70-99); Magnesium 1.6 mg/dL (1.6-2.6); Osmolality,Calculated 288 (280-300); Phosphorous 3.3 mg/dL (2.3-4.7); Potassium 3.9 mEq/L (3.5-4.5); Sodium 140 mEq/L (136-145); eGFR For African Americans > 60 (> 60); eGFR For Non-African Americans > 60 (> 60)
[2016-09-25] MEDS: Diltiazem CD (24hr) 120 MG CAPSULE PO SCH (08:24)
[2016-09-25] MEDS: Aspirin Enteric Coated 81 MG Tablet PO SCH (08:24)
[2016-09-25] MEDS: APIXABAN 2.5 MG TABLET PO SCH (08:24)
--- NOTE | 2016-09-25 14:54 | Discharge Summary ---
Date of Encounter: 09/25/16 Time of Encounter: 14:47 - Discharge Diagnosis (1) Atrial fibrillation Priority: Primary Status: Acute Qualifiers: Atrial fibrillation type: paroxysmal Qualified Code(s): I48.0 - Paroxysmal atrial fibrillation (2) Urinary tract infection Priority: Primary Status: Inactive Qualifiers: Urinary tract infection type: site unspecified Hematuria presence: without hematuria Qualified Code(s): N39.0 - Urinary tract infection, site not specified (3) Anemia Priority: Secondary Status: Chronic Qualifiers: Anemia type: unspecified type Qualified Code(s): D64.9 - Anemia, unspecified (4) HTN (hypertension) Priority: Secondary Status: Chronic Qualifiers: Hypertension type: essential hypertension Qualified Code(s): I10 - Essential (primary) hypertension (5) Colon cancer Priority: Secondary Status: Chronic Qualifiers: Colon location: unspecified part of colon Qualified Code(s): C18.9 - Malignant neoplasm of colon, unspecified (6) DVT prophylaxis Priority: Secondary Status: Acute (7) Hypomagnesemia Priority: Secondary Status: Resolved - Discharge Medications Prescriptions: Apixaban [Eliquis] 2.5 mg PO BID #30 tablet Aspirin Enteric Coated [Aspirin EC] 81 mg PO DAILY #15 tablet. Diltiazem [Cardizem] 120 mg PO Q12H #30 tablet Metoprolol [Lopressor] 50 mg PO BID #30 tablet Home Medications: Metoprolol [Lopressor] 12.5 mg PO BID 08/30/16 [History] Apixaban [Eliquis] 2.5 mg PO BID #30 tablet 09/25/16 [Rx] Aspirin Enteric Coated [Aspirin EC] 81 mg PO DAILY #15 tablet. 09/25/16 [Rx] Diltiazem [Cardizem] 120 mg PO Q12H #30 tablet 09/25/16 [Rx] Metoprolol [Lopressor] 50 mg PO BID #30 tablet 09/25/16 [Rx] Allergies/Adverse Reactions: Allergies Penicillins [PCN] Allergy (Verified 08/30/16 14:12) Rash Sulfa (Sulfonamide Antibiotics) Allergy (Verified 08/30/16 14:12) Vomiting Date of admission: 09/22/16 16:45 Primary care physician: Ishan Mclaughlin MD Consults: Cardiology: Dr. Grimes Discharging clinician: Jessica Pennington Anticipated date of discharge: 09/25/16 - Patient Status Disposition: Home, Self-Care Condition: Good Functional capacity at discharge: uses cane/walker Overall status at discharge: patient is back to baseline - Discharge Instructions Follow Up With: Didier Rossi MD [Partnered Physician] - 10/03/16 9:30 am (Your follow up appointment will be at the [place] [facility].) Ishan Mclaughlin MD [Primary Care Provider] - 10/01/16 10:30 am Additional Instructions: Please follow up with her primary care physician within one week after discharge from the hospital. Please follow up with cardiology within 1 week after discharge from the hospital. Follow-up with oncology as per your scheduled appointment Metoprolol, Cardizem, aspirin, and Eliquis has been added to your home medications Please continue to take these medications as prescribed Please seek medical help immediately if you have any episodes of acute bleeding , chest pain, shortness of breath. Please resume all your medications as prescribed by her primary care physician. - Diet and Activity Activity: resume usual activities as tolerated Diet: low salt diet Hospital course: Ms. Zaragoza is a 81 year old female with past medical history of recent urinary tract infection, hypertension, colon cancer in remission who was admitted for management of UTI and A. fib. Patient was started on IV antibiotics and cardiology was consulted for anticoagulation management for atrial fibrillation. Patient was also noted to be influenza A+ however her presenting symptoms had been greater than 48 hours due to which she was not a candidate for antiviral therapy. Patient was started on Eliquis for anticoagulation and her rate was controlled with metoprolol and Cardizem. Patient finished 7 days of antibiotics for her urinary tract infection. Patient was also seen by physical therapy and home health was recommended. Patient refused home health at this time. At this time patient is hemodynamically stable, rate is controlled, she will be discharged to home with follow-up with PCP, oncology, and cardiology. Patient demonstrates understanding of her diagnosis, and agrees with the discharge care and plan. - Time Spent with Patient Total time spent providing and/or coordinating discharge services: Greater than 30 minutes - Constitutional Vitals: Temp Pulse Resp BP Pulse Ox 98.1 F 83 15 128/81 96 09/25/16 10:31 09/25/16 10:31 09/25/16 10:31 09/25/16 10:31 09/25/16 10:31 General appearance: Present: cooperative, A&O X 3, pleasant, no acute distress, underweight, answers questions appropriately - Head Head exam: Present: atraumatic, normocephalic - Eye Eye exam: Present: conjuntiva pink, sclera anicteric - Respiratory Respiratory exam: Present: CTAB. Absent: respiratory distress, wheezes - Cardiovascular Cardiovascular exam: Present: irregular rhythm, +S1, +S2 - GI/Abdominal GI/Abdominal exam: Present: normal bowel sounds, soft. Absent: tenderness - Extremities Exam Extremities exam: Present: warm, radial pulses palpable and symetrical. Absent : calf tenderness, pedal edema - Neurological Exam Neurological exam: Present: alert, oriented X3 - VTE Documentation of Mechanical Device: Graduated compression elastic hosiery
[2016-09-25] MEDS: Diltiazem SR (12hr) 60 MG CAPSULE PO SCH (18:34)
[2016-09-25] MEDS: Azithromycin 500 MG in D5% in Water 250 ML IVPB SCH (20:42)
[2016-09-25] MEDS: Famotidine 20 MG TABLET PO SCH (20:42)
[2016-09-26] MEDS: Aspirin Enteric Coated 81 MG Tablet PO SCH (09:22)
[2016-09-26] MEDS: Diltiazem SR (12hr) 60 MG CAPSULE PO SCH (09:23)
[2016-09-26 10:43] VITALS: BP 105/71
--- NOTE | 2016-09-26 14:36 | Internal Med Progress Note ---
Date of Encounter: 09/26/16 Time of Encounter: 14:27 - Assessment and plan (1) Atrial fibrillation Current Visit: Yes Status: Acute Qualifiers: Atrial fibrillation type: paroxysmal Qualified Code(s): I48.0 - Paroxysmal atrial fibrillation (2) Urinary tract infection Current Visit: No Status: Inactive Qualifiers: Urinary tract infection type: site unspecified Hematuria presence: without hematuria Qualified Code(s): N39.0 - Urinary tract infection, site not specified (3) Anemia Current Visit: No Status: Chronic Qualifiers: Anemia type: unspecified type Qualified Code(s): D64.9 - Anemia, unspecified (4) HTN (hypertension) Current Visit: Yes Status: Chronic Qualifiers: Hypertension type: essential hypertension Qualified Code(s): I10 - Essential (primary) hypertension (5) Colon cancer Current Visit: No Status: Chronic Qualifiers: Colon location: unspecified part of colon Qualified Code(s): C18.9 - Malignant neoplasm of colon, unspecified (6) DVT prophylaxis Current Visit: Yes Status: Acute (7) Hypomagnesemia Current Visit: Yes Status: Resolved - Subjective Interval history: Patient is an 81-year-old female who was admitted for UTI, influenza, and new onset A. fib. Patient was discharged to home yesterday however prior to her discharge she was noted to have new onset of hematuria. During this hospitalization patient was started on Eliquis for stroke prevention given her CHADVASC score. Her Eliquis was placed on hold and patient's discharge was canceled. Today patient is resting comfortably in bed, states her hematuria has completely resolved and her urine is clear at this time. Patient will be discharged home today with holding the Eliquis dose until she follows up with cardiology. Patient demonstrates understanding of her diagnosis and agrees with the discharge plan. Patient is to continue to hold Eliquis and continue Aspirin, Cardizem, and Metoprolol in addition to all her other home medications. - Constitutional Vitals: Temp Pulse Resp BP Pulse Ox 98.0 F 78 19 105/71 92 L 09/26/16 10:42 09/26/16 10:42 09/26/16 10:42 09/26/16 10:42 09/26/16 10:42 General appearance: Present: cooperative, A&O X 3, pleasant, no acute distress, underweight, answers questions appropriately - Head Head exam: Present: atraumatic, normocephalic - Eye Eye exam: Present: normal appearance, conjuntiva pink, sclera anicteric - Respiratory Respiratory exam: Present: CTAB. Absent: accessory muscle use, rales, rhonchi, wheezes - Cardiovascular Cardiovascular exam: Present: RRR, +S1, +S2 - GI/Abdominal GI/Abdominal exam: Present: normal bowel sounds, soft. Absent: tenderness - Extremities Exam Extremities exam: Present: warm, radial pulses palpable and symetrical. Absent : pedal edema Internal Medicine: Result - Labs CBC & Chem 7: 09/25/16 05:03 09/25/16 05:03 - VTE Documentation of Mechanical Device: Graduated compression elastic hosiery Consult Discharge Plan - Plan Additional Instructions: Please follow up with her primary care physician within one week after discharge from the hospital. Please follow up with cardiology within 1 week after discharge from the hospital. Follow-up with oncology as per your scheduled appointment Metoprolol, Cardizem, aspirin, and Eliquis has been added to your home medications Please continue to take these medications as prescribed Please seek medical help immediately if you have any episodes of acute bleeding , chest pain, shortness of breath. Please resume all your medications as prescribed by her primary care physician. Referrals: Didier Rossi MD [Partnered Physician] - 10/03/16 9:30 am (Your follow up appointment will be at the [place] [facility].) Ishan Mclaughlin MD [Primary Care Provider] - 10/01/16 10:30 am Prescriptions: Apixaban [Eliquis] 2.5 mg PO BID #30 tablet Aspirin Enteric Coated [Aspirin EC] 81 mg PO DAILY #15 tablet. Diltiazem [Cardizem] 120 mg PO Q12H #30 tablet Metoprolol [Lopressor] 50 mg PO BID #30 tablet
[2016-09-26] MEDS ORDERED: Azithromycin 250 MG TABLET PO SCH (20:00)
== END 2016-09-26 15:39 | disposition home or self-care (01) | DRG 690 ==
LOC: EMEROO 13:35 → 3BNU 13:35 → SUATTDRO 17:38 → 3BNU 18:38
PROVIDERS: ADMIT Internal Medicine; ATTEND Internal Medicine